=== PATIENT | female | born 1975 | race Caucasian/White ===

== ENCOUNTER → 2016-05-31 | Outpatient (CLI) | payer OTHER ==
--- NOTE | 2016-06-01 17:20 | XR ---
EXAMINATION TYPE: XR chest 2V DATE OF EXAM: 05/31/2016 3:31 PM COMPARISON: 01/08/2015 INDICATION: Short of breath cough wheeze TECHNIQUE: Frontal and lateral views of the chest are obtained. FINDINGS: The heart size is normal. The pulmonary vasculature is normal. The lungs are clear. IMPRESSION: 1. No acute pulmonary process.
== END | disposition home or self-care (01) ==
LOC: RADXRYALE 15:20
PROVIDERS: ATTEND Physician Assistant Medical
DX: R06.02 Shortness of breath (principal); R05 Cough; R06.2 Wheezing
CPT/HCPCS: 71020

== ENCOUNTER 2021-06-09 23:44 | Inpatient (IN) | payer OTHER ==
--- NOTE | 2021-06-10 00:59 | ED ---
Chest Pain HPI - General Chief Complaint: Chest Pain Stated Complaint: Chest Pain Time Seen by Provider: 06/10/21 00:05 Source: patient, RN notes reviewed, old records reviewed Mode of arrival: ambulatory Limitations: no limitations - History of Present Illness Initial Comments: This is a 46-year-old female DF for evaluation. Patient coming in for chest pain anterior chest pain she has recent diagnosis of coronavirus is concern for maybe chest pain related coronavirus also chest pain from prior history of prior history of myocardial infarction. Patient has prior stents. One STEMI 1 non- STEMI. Patient although sitting here in the ER has no chest pain. She is never to take nitro for chest pain relief at home first heart attack was 8 years MD Complaint: chest pain -: hour(s) Onset: during rest Pain Location: substernal, left chest Pain Radiation: LUE Severity: mild Severity scale (1-10): 4 Quality: tightness Consistency: constant Improves With: nothing Worsens With: nothing Context: recent illness Other Symptoms: cough Treatments Prior to Arrival: none - Related Data Home Medications Medication Instructions Recorded Confirmed Citalopram Hydrobromide [CeleXA] 20 mg PO HS 01/08/15 01/08/15 Omeprazole [PriLOSEC] 40 mg PO AC-BID 01/08/15 01/08/15 Previous Rx's Medication Instructions Recorded Aspirin 325 mg PO DAILY #30 tab 09/29/14 Atorvastatin [Lipitor] 80 mg PO HS #30 tab 09/29/14 Metoprolol Tartrate [Lopressor] 25 mg PO BID #60 tab 09/29/14 Nitroglycerin Sl Tabs [Nitrostat] 0.4 mg SUBLINGUAL Q5M PRN #25 tab 09/29/14 Prasugrel [Effient] 10 mg PO DAILY #30 tab 09/29/14 Allergies Allergy/AdvReac Type Severity Reaction Status Date / Time No Known Allergies Allergy Verified 06/09/21 23:52 Review of Systems ROS Statement: Those systems with pertinent positive or pertinent negative responses have been documented in the HPI. ROS Other: All systems not noted in ROS Statement are negative. EKG Findings - EKG Comments: EKG Findings:: EKG shows sinus rhythm 60 IN 148 QRS 82 QTC 418 Past Medical History Past Medical History: Asthma, Hyperlipidemia, Hypertension, Myocardial Infarction ([place]) Additional Past Medical History / Comment(s): ANXIETY/DEPRESSION, covid may 2021 Last Myocardial Infarction Date:: 09/26/14 History of Any Multi-Drug Resistant Organisms: None Reported Past Surgical History: Section, Heart Catheterization With Stent Additional Past Surgical History / Comment(s): cardiac stent 09/26/14 Past Anesthesia/Blood Transfusion Reactions: No Reported Reaction Date of Last Stent Placement:: 09/26/2014 Past Psychological History: Anxiety Past Alcohol Use History: None Reported Past Drug Use History: None Reported - Past Family History Mother Family Medical History: Diabetes Mellitus, Hyperlipidemia, Hypertension Father Family Medical History: Coronary Artery Disease (CAD) Additional Family Medical History / Comment(s): CABG Brother(s) Family Medical History: Coronary Artery Disease (CAD) Additional Family Medical History / Comment(s): [place] AT 33 Y/O General Exam Limitations: no limitations General appearance: alert, in no apparent distress Head exam: Present: atraumatic, normocephalic, normal inspection Eye exam: Present: normal appearance, PERRL, EOMI. Absent: scleral icterus, conjunctival injection, periorbital swelling ENT exam: Present: normal exam, mucous membranes moist Neck exam: Present: normal inspection. Absent: tenderness, meningismus, lymphadenopathy Respiratory exam: Present: normal lung sounds bilaterally. Absent: respiratory distress, wheezes, rales, rhonchi, stridor Cardiovascular Exam: Present: regular rate, normal rhythm, normal heart sounds. Absent: systolic murmur, diastolic murmur, rubs, gallop, clicks GI/Abdominal exam: Present: soft, normal bowel sounds. Absent: distended, tenderness, guarding, rebound, rigid Extremities exam: Present: normal inspection, full ROM, normal capillary refill. Absent: tenderness, pedal edema, joint swelling, calf tenderness Back exam: Present: normal inspection Neurological exam: Present: alert, oriented X3, CN II-XII intact Psychiatric exam: Present: normal affect, normal mood Skin exam: Present: warm, dry, intact, normal color. Absent: rash Course Vital Signs 06/09/21 06/10/21 06/10/21 23:45 01:00 02:33 Temperature 97.8 F Pulse Rate 63 59 L 62 Respiratory 18 18 18 Rate Blood Pressure 129/62 116/55 142/94 O2 Sat by Pulse 96 97 96 Oximetry - Reevaluation(s) Reevaluation #1: 06/10/21 02:14 Medical record is reviewed Reevaluation #2: 06/10/21 02:14 Patient remains without chest pain here in the ER Reevaluation #3: 06/10/21 02:42 She is informed of results and questions answered - Consultations Consultation #1: Spoke with the admitting physician who agrees to admission Chest Pain MDM - MDM 46 female Duane with chest pain recent diagnosis of coronavirus. Diagnosis was first noted to be 11 days ago. Patient's been feeling well without fever, patient had chest pain today she does have positive troponin here in the ER for positive non-ST elevated [place] patient will be admitted for further evaluation management Critical Care Time Critical Care Time: Yes Total Critical Care Time: 31 Disposition Clinical Impression: Chest pain, Acute non-ST elevation myocardial infarction (NSTEMI) Disposition: ADMITTED IP TO THIS HOSP Condition: Serious Is patient prescribed a controlled substance at d/c from ED?: No Referrals: Jerrell Brown DO [Primary Care Provider] - 1-2 days
[2021-06-10] MEDS ORDERED: KETOROLAC 15 MG/ML 1 ML VIAL IVP STA (01:00)
[2021-06-10] MEDS ORDERED: SODIUM CHLORIDE 0.9% 1,000 ML IV STA (01:00)
[2021-06-10] MEDS ORDERED: DEXAMETHASONE SOD PHOSPHATE 10 MG/ML 1 ML VIAL IVP STA (01:00)
--- NOTE | 2021-06-10 01:12 | XR ---
EXAMINATION TYPE: XR chest 2V DATE OF EXAM: 06/10/2021 COMPARISON: 05/31/2016 HISTORY: Chest pain TECHNIQUE: FINDINGS: Heart and mediastinum are normal. Lungs are clear. Diaphragm is normal. There are chest luz ds. Bony thorax is intact. IMPRESSION: Normal chest. No change.
[2021-06-10 01:43] LABS: Anisocytosis Slight; Basophils # (A) 0.1 k/uL (0-0.2); Basophils % (A) 1 %; Eosinophils # (A) 0.3 k/uL (0-0.7); Eosinophils % (A) 3 %; HCT 35.2 % (34.0-46.0); HGB 11.4 gm/dL (11.4-16.0); Hypochromasia Slight; Lymphocytes # (A) 2.6 k/uL (1.0-4.8); Lymphocytes % (A) 30 %; MCH 27.7 pg (25.0-35.0); MCHC 32.4 g/dL (31.0-37.0); MCV 85.4 fL (80.0-100.0); Mean Platelet Volume 8.9; Monocytes # (A) 0.4 k/uL (0-1.0); Monocytes % (A) 5 %; Neutrophils # (A) 5.1 k/uL (1.3-7.7); Neutrophils % (A) 60 %; Platelet Count 334 k/uL (150-450); Poikilocytosis Slight; RBC 4.12 m/uL (3.80-5.40); RDW 18.3 % (11.5-15.5); WBC 8.6 k/uL (3.8-10.6)
[2021-06-10 01:56] LABS: ALT 16 U/L (4-34); AST 21 U/L (14-36); African American GFR (CKD) >90 (>60 ml/min/1.73 sqM); Albumin 3.7 g/dL (3.5-5.0); Alkaline Phosphatase 95 U/L (38-126); Anion Gap 9 mmol/L; Blood Urea Nitrogen 15 mg/dL (7-17); C Reactive Protein 0.8 mg/dL (<1.0); Calcium 9.3 mg/dL (8.4-10.2); Carbon Dioxide 25 mmol/L (22-30); Chloride 103 mmol/L (98-107); Glucose 112 mg/dL (74-99); LDH 595 U/L (313-618); Lipase 86 U/L (23-300); Magnesium 2.1 mg/dL (1.6-2.3); Non-African American GFR(CKD) 81 (>60 ml/min/1.73 sqM); Potassium 4.6 mmol/L (3.5-5.1); Sodium 137 mmol/L (137-145); Total Bilirubin 0.4 mg/dL (0.2-1.3); Total Protein 6.9 g/dL (6.3-8.2)
[2021-06-10 02:15] LABS: INR 0.9 (<1.2); Prothrombin Time 10.1 sec (9.0-12.0)
[2021-06-10 02:16] LABS: Partial Thromboplastin Time 21.8 sec (22.0-30.0)
[2021-06-10] MEDS ORDERED: MORPHINE SULFATE 4 MG/ML SYRINGE IV PRN (02:40)
[2021-06-10] MEDS ORDERED: NITROGLYCERIN SL TABS 0.4 MG TAB SUBLINGUAL PRN (02:40)
[2021-06-10] MEDS ORDERED: HEPARIN SODIUM 1,000 UN/ML (10ML VL) IV ONE (02:40)
[2021-06-10] MEDS ORDERED: ASPIRIN 81 MG PO STA (02:40)
[2021-06-10] MEDS: SODIUM CHLORIDE 0.9% 1,000 ML IV SCH (03:17)
[2021-06-10] MEDS: HEPARIN SOD,PORK IN 0.45% NACL 25,000 UNIT in 0.45% NACL 1 250ML.BAG IV SCH (03:19)
[2021-06-10] MEDS: METOPROLOL TARTRATE 25 MG TAB PO SCH ×2 (08:49→19:51)
[2021-06-10] MEDS: ATORVASTATIN 80 MG TAB PO SCH (08:49)
--- NOTE | 2021-06-10 09:06 | P.CRDCN ---
History of Present Illness Consult date: 06/10/21 Consult reason: chest pain Chief complaint: Chest pain History of present illness: 46-year-old lady with history of inferior wall myocardial infarction status post angioplasty with stent placement of right coronary artery hypertension and dyslipidemia presents to Hospital complaining of chest discomfort. She suffered from a flulike illness about 10-12 days ago and tested positive for coronary bypass infection yesterday she developed episodes of chest discomfort she has also had cough with mild productive sputum she describes it as a precordial chest pressure without definite radiation to neck, back she is a smoker and is still smoking cigarettes in EKG does not reveal acute ischemic changes her troponins are mildly elevated patient has known CAD and had angioplasty with stent placement of distal right coronary artery that showed a 30% proximal LAD disease at that time she has seen Dr. Durán at that time but hasn't been seen in our office in about 6 years. She currently follows at [facility] It is unclear if the patient's chest discomfort in troponin elevation is related to "infection or represents a true myocardial infarction I advised the patient to undergo cardiac catheterization for further evaluation I will obtain a 2-D echo to assess her LV function Patient has been vaccinated but not boosted Review of Systems Constitutional: Denies chills. Denies fever. Eyes: Denies blurred vision. Denies pain. Ears, nose, mouth and throat: Denies headache. Denies sore throat. Cardiovascular: Significant for chest pain Denies shortness of breath. Respiratory: Denies cough. Gastrointestinal: Denies abdominal pain. Denies diarrhea. Denies nausea. Denies vomiting. Musculoskeletal: Denies myalgias. Integumentary: Denies pruritus. Denies rash. Neurological: Denies numbness. Denies weakness. Psychiatric: Denies anxiety. Denies depression. Endocrine: Denies fatigue. Denies weight change. Genitourinary: Denies burning, hematuria, frequency of urination. Hematological: No anemia or excess bleeding. Past Medical History Past Medical History: Asthma, Hyperlipidemia, Hypertension, Myocardial Infarction ([place]) Additional Past Medical History / Comment(s): ANXIETY/DEPRESSION, covid may 2021 Last Myocardial Infarction Date:: 09/26/14 History of Any Multi-Drug Resistant Organisms: None Reported Past Surgical History: Section, Heart Catheterization With Stent Additional Past Surgical History / Comment(s): cardiac stent 09/26/14 Past Anesthesia/Blood Transfusion Reactions: No Reported Reaction Date of Last Stent Placement:: 09/26/2014 Past Psychological History: Anxiety Past Alcohol Use History: None Reported Past Drug Use History: None Reported - Past Family History Mother Family Medical History: Diabetes Mellitus, Hyperlipidemia, Hypertension Father Family Medical History: Coronary Artery Disease (CAD) Additional Family Medical History / Comment(s): CABG Brother(s) Family Medical History: Coronary Artery Disease (CAD) Additional Family Medical History / Comment(s): FROM [place] AT 33 Y/O Medications and Allergies Home Medications Medication Instructions Recorded Confirmed Type Aspirin 325 mg PO DAILY #30 tab 09/29/14 06/10/21 Rx Metoprolol Tartrate [Lopressor] 25 mg PO BID #60 tab 09/29/14 06/10/21 Rx Nitroglycerin Sl Tabs [Nitrostat] 0.4 mg SUBLINGUAL Q5M PRN #25 tab 09/29/14 06/10/21 Rx Omeprazole [PriLOSEC] 40 mg PO BID 01/08/15 06/10/21 History Atorvastatin [Lipitor] 80 mg PO DAILY 06/10/21 06/10/21 History Citalopram Hydrobromide 40 mg PO DAILY 06/10/21 06/10/21 History Furosemide [Lasix] 20 mg PO HS 06/10/21 06/10/21 History Losartan Potassium [Cozaar] 25 mg PO HS 06/10/21 06/10/21 History Oxybutynin Chloride [Ditropan XL] 5 mg PO DAILY 06/10/21 06/10/21 History Potassium Chloride [Klor-Con 20] 20 meq PO HS 06/10/21 06/10/21 History Allergies Allergy/AdvReac Type Severity Reaction Status Date / Time No Known Allergies Allergy Verified 06/09/21 23:52 Physical Exam Vitals: Vital Signs Temp Pulse Resp BP Pulse Ox 06/10/21 08:52 75 18 139/83 96 06/10/21 07:22 55 L 18 121/67 94 L 06/10/21 04:47 74 18 151/84 96 06/10/21 03:24 56 L 18 136/69 97 06/10/21 02:33 62 18 142/94 96 06/10/21 01:00 59 L 18 116/55 97 06/09/21 23:45 97.8 F 63 18 129/62 96 Intake and Output 06/09/21 06/10/21 06/10/21 22:59 06:59 14:59 Other: Weight 90.718 kg General: The patient is awake and alert, in no distress, and does not appear acutely ill. Skin: Skin is warm and dry and no rashes or lesions are noted. Eye: Pupils are equal, round and reactive to light, extra-ocular movements are intact; there is normal conjunctiva bilaterally. Ears, nose, mouth and throat: There are moist mucous membranes and no oral lesions. Neck: The neck is supple, there is no tenderness or JVD. Cardiovascular: There is a regular rate and rhythm. No murmur, rub or gallop is appreciated. Respiratory: Lungs are clear to auscultation, respirations are non-labored, breath sounds are equal. Gastrointestinal: Soft, non-distended, non-tender abdomen without masses or organomegaly noted. There is no rebound or guarding present. Bowel sounds are unremarkable. Back: There is no tenderness to palpation in the midline. There is no obvious deformity. Musculoskeletal: Normal ROM, no tenderness, There is no pedal edema. There is no calf tenderness or swelling. Extremities: No edema. Vascular: Femoral pulse is normal. Posterior tibial pulses are normal .Dorsalis pedis is palpable. Neurological: CN II-XII intact. There are no obvious motor or sensory deficits. Speech is normal. Psychiatric: Cooperative, appropriate mood & affect, normal judgment. Results 06/10/21 01:00 06/10/21 01:00 Cardiac Enzymes 06/10/21 06/10/21 06/10/21 Range/Units 01:00 01:00 05:03 AST 21 (14-36) U/L Lactate Dehydrogenase 595 (313-618) U/L Troponin I 0.134 H* 0.280 H* (0.000-0.034) ng/mL Coagulation 06/10/21 06/10/21 Range/Units 01:00 07:55 PT 10.1 (9.0-12.0) sec APTT 21.8 L 49.6 H (22.0-30.0) sec CBC 06/10/21 Range/Units 01:00 WBC 8.6 (3.8-10.6) k/uL RBC 4.12 (3.80-5.40) m/uL Hgb 11.4 (11.4-16.0) gm/dL Hct 35.2 (34.0-46.0) % Plt Count 334 (150-450) k/uL Comprehensive Metabolic Panel 06/10/21 Range/Units 01:00 Sodium 137 (137-145) mmol/L Potassium 4.6 (3.5-5.1) mmol/L Chloride 103 (98-107) mmol/L Carbon Dioxide 25 (22-30) mmol/L BUN 15 (7-17) mg/dL Creatinine 0.86 (0.52-1.04) mg/dL Glucose 112 H (74-99) mg/dL Calcium 9.3 (8.4-10.2) mg/dL AST 21 (14-36) U/L ALT 16 (4-34) U/L Alkaline Phosphatase 95 (38-126) U/L Total Protein 6.9 (6.3-8.2) g/dL Albumin 3.7 (3.5-5.0) g/dL Current Medications Generic Name Dose Route Start Last Admin Trade Name Freq PRN Reason Stop Dose Admin Aspirin 325 mg 06/11/21 09:00 Aspirin 325 Mg Tab PO DAILY [facility] Atorvastatin Calcium 80 mg 06/10/21 09:00 06/10/21 08:49 Atorvastatin 80 Mg Tab PO 80 mg DAILY KIRILL Administration Sodium Chloride 1,000 mls @ 20 mls/hr 06/10/21 02:45 06/10/21 03:17 Saline 0.9% IV 20 mls/hr .Q24H KIRILL Administration Heparin Sodium/Sodium Chloride 250 mls @ 9.979 mls/hr 06/10/21 02:45 06/10/21 03:19 25,000 unit/ Sodium Chloride IV 11 units/kg/hr .Q24H KIRILL 9.979 mls/hr Administration Protocol 11 UNITS/KG/HR Losartan Potassium 25 mg 06/10/21 21:00 Losartan 25 Mg Tab PO HS KIRILL Metoprolol Tartrate 25 mg 06/10/21 09:00 06/10/21 08:49 Metoprolol Tartrate 25 Mg Tab PO 25 mg BID KIRILL Administration Morphine Sulfate 4 mg 06/10/21 02:40 Morphine Sulfate 4 Mg/Ml Syringe IV Q4HR PRN Chest Pain Nitroglycerin 0.4 mg 06/10/21 02:40 Nitroglycerin Sl Tabs 0.4 Mg Tab SUBLINGUAL Q5M PRN Chest Pain Intake and Output 06/09/21 06/10/21 06/10/21 22:59 06:59 14:59 Other: Weight 90.718 kg 06/10/21 01:00 06/10/21 01:00 EKG Interpretations (text) Normal sinus rhythm without ST-T wave changes Assessment and Plan Assessment: Acute coronary virus infection Acute non-ST segment elevation [place] Plan: Patient will undergo cardiac catheterization She is on brillinta since her initial angioplasty that she stopped in April
[2021-06-10] MEDS ORDERED: ALPRAZolam 0.5 MG TAB PO PRN (10:08)
[2021-06-10] MEDS ORDERED: ALPRAZolam 0.25 MG TAB PO PRN (10:08)
--- NOTE | 2021-06-10 10:43 | ECHOF ---
Referral Reason:elevated troponin, chest pain MEASUREMENTS -------- HEIGHT: 154.9 cm WEIGHT: 90.7 kg BP: IVSd: 1.2 cm (0.6 - 1.1) LVIDd: 3.4 cm (3.9 - 5.3) LVPWd: 1.6 cm (0.6 - 1.1) IVSs: 1.9 cm LVIDs: 1.9 cm LVPWs: 1.8 cm FINDINGS -------- Limited study due to covid 19 exposure. The left ventricular size is normal. There is moderate concentric left ventricular hypertrophy. O verall left ventricular systolic function is normal with, an EF between 55 - 60 %. There is no pericardial effusion. CONCLUSIONS -------- 1. Limited study due to covid 19 exposure. 2. The left ventricular size is normal. 3. There is moderate concentric left ventricular hypertrophy. 4. Overall left ventricular systolic function is normal with, an EF between 55 - 60 %. 5. There is no pericardial effusion. DISABILITY HEARING OFFICER: Hallie Almaraz [facility]
[2021-06-10] MEDS ORDERED: IV FLUID CONTINUATION 600 ML IV ONE (12:10)
[2021-06-10] MEDS ORDERED: MIDAZOLAM 2 MG/2 ML VIAL IV ONE (12:22)
[2021-06-10] MEDS ORDERED: fentaNYL (PF) 50 MCG/ML 2 ML AMP IV ONE (12:22)
[2021-06-10 12:40] LABS: African American GFR (CKD) >90 (>60 ml/min/1.73 sqM); Anion Gap 5 mmol/L; Blood Urea Nitrogen 14 mg/dL (7-17); Calcium 9.1 mg/dL (8.4-10.2); Carbon Dioxide 22 mmol/L (22-30); Chloride 107 mmol/L (98-107); Glucose 155 mg/dL (74-99); Non-African American GFR(CKD) >90 (>60 ml/min/1.73 sqM); Potassium 4.7 mmol/L (3.5-5.1); Sodium 134 mmol/L (137-145)
[2021-06-10] MEDS ORDERED: IOPAMIDOL-370 100ML BTL INJ ONE (12:48)
--- NOTE | 2021-06-10 13:11 | CC ---
CARDIAC CATHETERIZATION REPORT INDICATION: Acute int-AF-etmchox-elevation IL. PROCEDURE NOTE: After obtaining informed consent, left heart catheterization and coronary angiogram were performed via the right femoral artery using standard Bibi catheters. The patient tolerated the procedure well without any obvious immediate complications. Femoral angiogram was performed and Angio-Seal will be deployed for hemostasis. Patient received moderate conscious sedation. Total sedation time was 19 minutes. FINDINGS: HEMODYNAMICS: Left ventricular end-diastolic pressure is 12 mm. There is no significant gradient across the aortic valve. LEFT VENTRICULOGRAM: Left ventriculogram was not performed. ANGIOGRAPHIC DATA: Left main coronary artery. Left main coronary artery is a normal-sized vessel and is free of stenosis. It divides into left anterior descending coronary artery and circumflex coronary artery. LAD and its branches, circumflex coronary artery and its branches are free of significant stenosis. Right coronary artery was previously stented in the distal and mid right coronary artery. It is a large dominant vessel. The stents appear patent. There is mild diffuse disease involving the PLV and mild nonobstructive disease involving the PDA. CONCLUSIONS: Patent stents within the right coronary artery; mild nonobstructive disease distally. PLAN: I believe the patient's chest pain and the elevated troponins are related to the COVID infection. I will continue her with aggressive medical therapy. We should be able to discharge her home in the next 24 to 48 hours and outpatient followup with Cardiology. MMODL / IJN: [id number] /
--- NOTE | 2021-06-10 14:03 | P.HPIM ---
History of Present Illness 69-year-old the female with history of coronary artery disease and stents in the past came in with complaints of lower chest pain mostly burning sensation with some pleuritic competent. Patient had a flulike illness was diagnosed with COVID-19 about 4 days ago. Patient doesn't the have significant COVID-19 symptoms except for mild sore throat patient is not hypoxic. Patient did not have any significant EKG is but did have multiple mildly elevated troponins because of which patient underwent cardiac catheterization which did not show any significant dose coronary occlusive disease that will require stenting. REVIEW OF SYSTEMS: CONSTITUTIONAL: No fever, no malaise, no fatigue. HEENT: No recent visual problems or hearing problems. Denied any sore throat. CARDIOVASCULAR: No orthopnea, PND, no palpitations, no syncope. PULMONARY: No shortness of breath, no cough, no hemoptysis. GASTROINTESTINAL: No diarrhea, no nausea, no vomiting, no abdominal pain. NEUROLOGICAL: No headaches, no weakness, no numbness. HEMATOLOGICAL: Denies any bleeding or petechiae. GENITOURINARY: Denies any burning micturition, frequency, or urgency. MUSCULOSKELETAL/RHEUMATOLOGICAL: Denies any joint pain, swelling, or any muscle pain. ENDOCRINE: Denies any polyuria or polydipsia. The rest of the 14-point review of systems is negative. PHYSICAL EXAMINATION: GENERAL: The patient is alert and oriented x3, not in any acute distress. Well developed, well nourished. HEENT: Pupils are round and equally reacting to light. EOMI. No scleral icterus. No conjunctival pallor. Normocephalic, atraumatic. No pharyngeal erythema. No t hyromegaly. CARDIOVASCULAR: S1 and S2 present. No murmurs, rubs, or gallops. PULMONARY: Chest is clear to auscultation, no wheezing or crackles. ABDOMEN: Soft, nontender, nondistended, normoactive bowel sounds. No palpable organomegaly. MUSCULOSKELETAL: No joint swelling or deformity. EXTREMITIES: No cyanosis, clubbing, or pedal edema. NEUROLOGICAL: Gross neurological examination did not reveal any focal deficits. SKIN: No rashes. Assessment and plan -Chest pain is musculoskeletal pleuropericarditis from coronavirus infection. Patient the had elevated troponins probably secondary to the same. Patient had cardiac catheterization which did not show significant occlusive disease that will need stenting. -Type II non-ST elevation [place] patient is presently on IV heparin which will be co ntinued next -ruled out pulmonary embolism with a d-dimer. -Severe gastroesophageal reflux disease, Protonix twice a day along with Maalox -coronary artery disease with previous stents -Hyperlipidemia -Hypertension -Nicotine abuse: Counseling was provided DVT prophylaxis: On IV heparin Past Medical History Past Medical History: Asthma, Coronary Artery Disease (CAD), Heart Failure, GERD/Reflux, Hyperlipidemia, Hypertension, Myocardial Infarction ([place]), Pneumonia Additional Past Medical History / Comment(s): Pt has covid/+covid tests 05/31/21 and 06/05/21 with symptoms starting on 05/31/21, CHF once in 2019, chronic gerd, urinary leakage. Last Myocardial Infarction Date:: 05/20/18 History of Any Multi-Drug Resistant Organisms: None Reported Past Surgical History: Section, Heart Catheterization With Stent Additional Past Surgical History / Comment(s): PCI with stents to RCA 2014 and 2017, Past Anesthesia/Blood Transfusion Reactions: No Reported Reaction Date of Last Stent Placement:: 05/20/18 Smoking Status: Current every day smoker - Past Family History Mother Family Medical History: Diabetes Mellitus, Hyperlipidemia, Hypertension Father Family Medical History: Coronary Artery Disease (CAD) Additional Family Medical History / Comment(s): CABG Brother(s) Family Medical History: Coronary Artery Disease (CAD), Myocardial Infarction ([place]) Additional Family Medical History / Comment(s): FROM [place] AT 33 Y/O Medications and Allergies Home Medications Medication Instructions Recorded Confirmed Type Aspirin 325 mg PO DAILY #30 tab 09/29/14 06/10/21 Rx Metoprolol Tartrate [Lopressor] 25 mg PO BID #60 tab 09/29/14 06/10/21 Rx Nitroglycerin Sl Tabs [Nitrostat] 0.4 mg SUBLINGUAL Q5M PRN #25 tab 09/29/14 Rx Omeprazole [PriLOSEC] 40 mg PO BID 01/08/15 06/10/21 History Atorvastatin [Lipitor] 80 mg PO DAILY 06/10/21 06/10/21 History Citalopram Hydrobromide 40 mg PO DAILY 06/10/21 06/10/21 History Furosemide [Lasix] 20 mg PO HS 06/10/21 06/10/21 History Losartan Potassium [Cozaar] 25 mg PO HS 06/10/21 06/10/21 History Oxybutynin Chloride [Ditropan XL] 5 mg PO DAILY 06/10/21 06/10/21 History Potassium Chloride [Klor-Con 20] 20 meq PO HS 06/10/21 06/10/21 History Allergies Allergy/AdvReac Type Severity Reaction Status Date / Time No Known Allergies Allergy Verified 06/09/21 23:52 Physical Exam Vitals: Vital Signs Temp Pulse Resp BP Pulse Ox 06/10/21 10:19 68 18 127/74 96 06/10/21 08:52 75 18 139/83 96 06/10/21 07:22 55 L 18 121/67 94 L 06/10/21 04:47 74 18 151/84 96 06/10/21 03:24 56 L 18 136/69 97 06/10/21 02:33 62 18 142/94 96 06/10/21 01:00 59 L 18 116/55 97 06/09/21 23:45 97.8 F 63 18 129/62 96 Intake and Output 06/09/21 06/10/21 06/10/21 22:59 06:59 14:59 Intake Total 100 Balance 100 Intake: IV 100 Other: Weight 90.718 kg 90.718 kg Results CBC & Chem 7: 06/10/21 01:00 06/10/21 07:55 Labs: Abnormal Lab Results - Last 24 Hours (Table) 06/10/21 06/10/21 06/10/21 Range/Units 01:00 01:00 01:00 RDW 18.3 H (11.5-15.5) % APTT 21.8 L (22.0-30.0) sec Sodium (137-145) mmol/L Glucose 112 H (74-99) mg/dL Troponin I (0.000-0.034) ng/mL Coronavirus (PCR) (Not Detectd) 06/10/21 06/10/21 06/10/21 Range/Units 01:00 01:00 05:03 RDW (11.5-15.5) % APTT (22.0-30.0) sec Sodium (137-145) mmol/L Glucose (74-99) mg/dL Troponin I 0.134 H* 0.280 H* (0.000-0.034) ng/mL Coronavirus (PCR) Detected A (Not Detectd) 06/10/21 06/10/21 06/10/21 Range/Units 07:55 07:55 07:55 RDW (11.5-15.5) % APTT 49.6 H (22.0-30.0) sec Sodium 134 L (137-145) mmol/L Glucose 155 H (74-99) mg/dL Troponin I 0.331 H* (0.000-0.034) ng/mL Coronavirus (PCR) (Not Detectd) Thrombosis Risk Factor Assmnt - Choose All That Apply Any of the Below Risk Factors Present?: Yes Each Factor Represents 1 point: Acute [place], Age 41-60 years, Obesity (BMI >25) Other Risk Factors: No Other congenital or acquired thrombophilia - If yes, enter type in comment: No Thrombosis Risk Factor Assessment Total Risk Factor Score: 3 Thrombosis Risk Factor Assessment Level: Moderate Risk
[2021-06-10] MEDS: NITROGLYCERIN OINT 1 INCH/GM PACKET TOPICAL SCH ×3 (18:58→23:26)
[2021-06-10] MEDS: SODIUM CHLORIDE 0.9% 1,000 ML in EMPTY BAG 1 BAG IV SCH ×2 (18:58→21:40)
[2021-06-10] MEDS: MAG HYDROX/AL HYDROX/SIMETH 30 ML CUP PO SCH ×2 (18:59→19:51)
[2021-06-10] MEDS: PANTOPRAZOLE 40 MG/10 ML VIAL IVP SCH (19:51)
[2021-06-10 20:13] LABS: Glucose,Whole Blood 177 mg/dL (75-99)
[2021-06-10] MEDS ORDERED: LOSARTAN 25 MG TAB PO SCH (21:00)
[2021-06-11 06:11] LABS: Glucose,Whole Blood 127 mg/dL (75-99)
[2021-06-11] MEDS ORDERED: HEPARIN SODIUM,PORCINE 2,500 UNIT in SODIUM CHLORIDE 0.9% 250 ML IRRIGATION PRN (07:00)
[2021-06-11] MEDS ORDERED: HEPARIN SODIUM,PORCINE 10,000 UNIT in SODIUM CHLORIDE 0.9% 1,000 ML IRRIGATION PRN (07:00)
[2021-06-11 08:16] LABS: Anisocytosis Slight; Basophils % (A) 0 %; Eosinophils % (A) 0 %; HCT 32.9 % (34.0-46.0); HGB 10.4 gm/dL (11.4-16.0); Hypochromasia Moderate; Lymphocytes # (A) 2.1 k/uL (1.0-4.8); Lymphocytes % (A) 25 %; MCH 27.4 pg (25.0-35.0); MCHC 31.5 g/dL (31.0-37.0); Mean Platelet Volume 8.7; Monocytes # (A) 0.4 k/uL (0-1.0); Monocytes % (A) 5 %; Neutrophils # (A) 5.7 k/uL (1.3-7.7); Neutrophils % (A) 68 %; Platelet Count 331 k/uL (150-450); Poikilocytosis Slight; RBC 3.79 m/uL (3.80-5.40); RDW 18.6 % (11.5-15.5); WBC 8.4 k/uL (3.8-10.6)
[2021-06-11] MEDS: SODIUM CHLORIDE 0.9% 1,000 ML IV SCH (08:26)
[2021-06-11] MEDS: HEPARIN SOD,PORK IN 0.45% NACL 25,000 UNIT in 0.45% NACL 1 250ML.BAG IV SCH (08:26)
[2021-06-11] MEDS: NITROGLYCERIN OINT 1 INCH/GM PACKET TOPICAL SCH (08:27)
[2021-06-11] MEDS: SODIUM CHLORIDE 0.9% 1,000 ML in EMPTY BAG 1 BAG IV SCH (08:27)
[2021-06-11] MEDS ORDERED: ASPIRIN 325 MG TAB PO SCH (09:00)
[2021-06-11] MEDS: MAG HYDROX/AL HYDROX/SIMETH 30 ML CUP PO SCH ×2 (09:18→13:57)
[2021-06-11] MEDS: ATORVASTATIN 80 MG TAB PO SCH (09:18)
[2021-06-11] MEDS: METOPROLOL TARTRATE 25 MG TAB PO SCH (09:18)
[2021-06-11] MEDS: PANTOPRAZOLE 40 MG/10 ML VIAL IVP SCH (09:18)
[2021-06-11 09:25] LABS: African American GFR (CKD) >90 (>60 ml/min/1.73 sqM); Anion Gap 5 mmol/L; Blood Urea Nitrogen 12 mg/dL (7-17); Calcium 8.7 mg/dL (8.4-10.2); Carbon Dioxide 25 mmol/L (22-30); Chloride 107 mmol/L (98-107); Glucose 120 mg/dL (74-99); Non-African American GFR(CKD) >90 (>60 ml/min/1.73 sqM); Potassium 4.4 mmol/L (3.5-5.1); Sodium 137 mmol/L (137-145)
[2021-06-11 11:15] LABS: Chol/HDL Ratio 5.26 Ratio; LDL Cholesterol,Calculated 106.9 mg/dL (0.0-131.0)
[2021-06-11 11:47] LABS: Glucose,Whole Blood 116 mg/dL (75-99)
--- NOTE | 2021-06-11 11:52 | P.PN ---
Subjective Progress Note Date: 06/11/21 Patient is 46-year-old lady with history of inferior wall myocardial infarction status post angioplasty with stent placement of right coronary artery hypertension and dyslipidemia presents to Hospital complaining of chest discomfort. Patient began developing chest pain and was brought into the ER. She was found to have troponins positive 2. Patient was taken for a heart catheterization yesterday. No significant blockages were found during heart catheterization the distal and mid RCA stents are patent, and she was noted to have mild nonobstructive disease of the distal RCA. Patient will be medically managed. Elevated troponins are believed to be related to Covid infection. Patient was examined and resting in bed comfortably today. She denies chest pain, palpitations, dyspnea, dizziness, syncope, or edema. She states she is doing much better today and is ready to go. Patient underwent an echocardiogram which showed a normal LV function with an ejection fraction 55-60%. Patient is doing well today and from a cardiac standpoint can be discharged home continue with all current cardiac medications. Objective - Vital Signs Vital signs: Vital Signs Temp 98.3 F 06/11/21 03:53 Pulse 57 L 06/11/21 03:53 Resp 17 06/11/21 03:53 BP 105/58 06/11/21 03:53 Pulse Ox 96 06/11/21 03:53 Intake & Output 06/10/21 06/11/21 06/11/21 18:59 06:59 18:59 Intake Total 460 0 Balance 460 0 Weight 90.718 kg 91.9 kg Intake: IV 100 Oral 360 0 Other: # Voids 2 1 - Exam PHYSICAL EXAM: VITAL SIGNS: Reviewed. GENERAL: Well-developed in no acute distress. HEENT: Head is normocephalic. Pupils are equal, round. Sclerae anicteric. Mucous membranes of the mouth are moist. NECK: Supple. No JVD or thyromegaly RESPIRATORY: Respirations even and unlabored. Lungs diminished to auscultation bilaterally. CARDIO: Regular rate and rhythm. S1 and S2 heard. No murmur or gallops. EXTREMITIES: Normal range of motion. No clubbing or cyanosis. Peripheral pulses intact. Negative for bilateral lower extremity edema. Right groin is soft, no hematoma, small dime size bruise noted. NEURO: Orientated to person, time, mood is appropriate - Labs CBC & Chem 7: 06/11/21 07:31 06/11/21 07:31 Labs: Abnormal Lab Results - Last 24 Hours (Table) 06/10/21 06/10/21 06/11/21 Range/Units 07:55 20:12 06:10 RBC (3.80-5.40) m/uL Hgb (11.4-16.0) gm/dL Hct (34.0-46.0) % RDW (11.5-15.5) % Sodium 134 L (137-145) mmol/L Glucose 155 H (74-99) mg/dL POC Glucose (mg/dL) 177 H 127 H (75-99) mg/dL Triglycerides (0.00-149.00) mg/dL HDL Cholesterol (40.00-60.00) mg/dL 06/11/21 06/11/21 06/11/21 Range/Units 07:31 07:31 07:31 RBC 3.79 L (3.80-5.40) m/uL Hgb 10.4 L (11.4-16.0) gm/dL Hct 32.9 L (34.0-46.0) % RDW 18.6 H (11.5-15.5) % Sodium (137-145) mmol/L Glucose 120 H (74-99) mg/dL POC Glucose (mg/dL) (75-99) mg/dL Triglycerides 174.00 H (0.00-149.00) mg/dL HDL Cholesterol 33.30 L (40.00-60.00) mg/dL Assessment and Plan Assessment: Acute coronary virus infection Acute non-ST segment elevation [place] Plan: Continue with all current cardiac medications Continue with telemetry monitoring Patient is clear for discharge from a cardiac standpoint The above impression and plan of care have been discussed and directed by the signing physician. Roseanne Webster, nurse practitioner, acting as scribe for signing physician.
[2021-06-11 12:32] VITALS: BP 117/68; TEMP 98
--- NOTE | 2021-06-11 13:09 | P.DS ---
Providers Date of admission: 06/10/21 02:40 Attending physician: Brooke Booth Consults: 06/10/21 02:40 Consult Physician Urgent Consulting Provider: Carla Kelly Consult Reason/Comments: nstemi Do you want consulting provider notified?: Yes Primary care physician: Jerrell Brown Hospital Course: Final Diagnosis -Chest pain, most likely musculoskeletal pleuropericarditis from coronavirus infection. -Type II non-ST elevation CO with elevated troponins secondary to infection -ruled out pulmonary embolism with a d-dimer. 0.31. -Severe gastroesophageal reflux disease, Protonix twice a day along with Maalox -coronary artery disease with previous stents, cardiac cath this admission shows patent stents -Hyponatremia; resolved -Hyperlipidemia -Hypertension -Nicotine abuse: Counseling was provided Discharge Disposition Patient is stable for discharge from medical and cardiology standpoint. Patient underwent cardiac catheterization through right groin this admission which revealed patent stents. Patient advised to follow-up with her media manager before after discharge. Recent coronavirus infection patient has already been cleared to return to work. Hospital course This is a pleasant 46, female who presents the [facility] with complaints of left chest pain that is radiating into the left arm and left jaw. She was recently diagnosed with coronavirus infection and had concern for Chest pain related to coronavirus infection but also has previous history of CO with stenting. Patient had one STEMI and 1 non-STEMI. In the EC patient had no chest pain. EKG reviewed shows normal sinus rhythm with a sinus arrhythmia, there are no ST or T-wave changes. Limited echo shows an ejection fraction of 55-60% with no pericardial effusion. Patient underwent cardiac catheterization through the rig ht groin which revealed patent stenting of the mid and distal right coronary artery. There was mild diffuse disease involving the PLV and mild nonobstructive disease involving the PDA. Patient was cleared for discharge on all cardiac medications. Sodium on admission 134, improved to 137, glucose in the 120s, troponins were elevated at 0.134, 0.280 and 0.331. Culture panel reveals triglyceride level 174.00, total cholesterol 175, LDL 106.9 and HDL 33.30. Patient has remained afebrile, heart rate 57-64 sinus bradycardia to sinus rhythm, blood pressure 117/68 and she is 97% on room air. 06/11/2021 Patient cleared for discharge medically. She denies any chest pain, cough or shortness of breath. She denies nausea vomiting diarrhea. There is no dizziness or lightheadedness. She will follow-up with her PCP and media manager. Lungs are clear to auscultation, S1-S2 present, abdomen soft nontender, focal neurological exam is negative. Vital signs stable. Groin site intact. Please see medication reconciliation for list of current medications. Thank you for allowing us to participate in the care of this patient. Patient Condition at Discharge: Stable Plan - Discharge Summary Discharge Rx Participant: No New Discharge Prescriptions: New Aspirin 81 mg PO DAILY #30 tab Continue Metoprolol Tartrate [Lopressor] 25 mg PO BID #60 tab Nitroglycerin Sl Tabs [Nitrostat] 0.4 mg SUBLINGUAL Q5M PRN #25 tab PRN Reason: Chest Pain Omeprazole [PriLOSEC] 40 mg PO BID Furosemide [Lasix] 20 mg PO HS Losartan Potassium [Cozaar] 25 mg PO HS Citalopram Hydrobromide 40 mg PO DAILY Atorvastatin [Lipitor] 80 mg PO DAILY Potassium Chloride [Klor-Con 20] 20 meq PO HS Oxybutynin Chloride [Ditropan XL] 5 mg PO DAILY Discontinued Aspirin 325 mg PO DAILY #30 tab Discharge Medication List Metoprolol Tartrate [Lopressor] 25 mg PO BID #60 tab 09/29/14 [Rx] Nitroglycerin Sl Tabs [Nitrostat] 0.4 mg SUBLINGUAL Q5M PRN #25 tab 09/29/14 [Rx] Omeprazole [PriLOSEC] 40 mg PO BID 01/08/15 [History] Atorvastatin [Lipitor] 80 mg PO DAILY 06/10/21 [History] Citalopram Hydrobromide 40 mg PO DAILY 06/10/21 [History] Furosemide [Lasix] 20 mg PO HS 06/10/21 [History] Losartan Potassium [Cozaar] 25 mg PO HS 06/10/21 [History] Oxybutynin Chloride [Ditropan XL] 5 mg PO DAILY 06/10/21 [History] Potassium Chloride [Klor-Con 20] 20 meq PO HS 06/10/21 [History] Aspirin 81 mg PO DAILY #30 tab 06/11/21 [Rx] Follow up Appointment(s)/Referral(s): McPhilimy,Jerrell, DO [Primary Care Provider] - 1-2 days Ambulatory/Diagnostic Orders: Basic Metabolic Panel [LAB.AMB] Time Frame: 2 Days, Location: None Selected Patient Instructions/Handouts: Left Heart Catheterization (DC) Activity/Diet/Wound Care/Special Instructions: Follow up with media manager at [facility] Activity restricted until follow up Heart healthy diet Discharge Disposition: HOME SELF-CARE
[2021-06-11 16:31] VITALS: PULSE 68; RESP 14
[2021-06-11] MEDS ORDERED: PANTOPRAZOLE 40 MG TABLET PO SCH (17:30)
[2021-06-12] MEDS ORDERED: ASPIRIN 81 MG PO SCH (09:00)
== END 2021-06-11 15:37 | disposition home or self-care (01) | DRG 177 ==
LOC: EC 23:44 → 3SCARD 06-10 02:40
PROVIDERS: ADMIT Hospitalist; ATTEND Hospitalist
PROC: B2111ZZ Fluoroscopy of Multiple Coronary Arteries using Low Osmolar Contrast (ICD-10-PCS; 2021-06-10)
PROC: 3E0333Z Introduction of Anti-inflammatory into Peripheral Vein, Percutaneous Approach (ICD-10-PCS; 2021-06-10)
PROC: 4A023N7 Measurement of Cardiac Sampling and Pressure, Left Heart, Percutaneous Approach (ICD-10-PCS; principal; 2021-06-10 16:20)
DX: U07.1 COVID-19 (principal); I21.A1 Myocardial infarction type 2; E87.1 Hypo-osmolality and hyponatremia; I31.9 Disease of pericardium, unspecified; E78.5 Hyperlipidemia, unspecified; F17.200 Nicotine dependence, unspecified, uncomplicated; I25.10 Atherosclerotic heart disease of native coronary artery without angina pectoris; I25.2 Old myocardial infarction; I50.9 Heart failure, unspecified; I11.0 Hypertensive heart disease with heart failure; J45.909 Unspecified asthma, uncomplicated; K21.9 Gastro-esophageal reflux disease without esophagitis; Z79.02 Long term (current) use of antithrombotics/antiplatelets; Z79.82 Long term (current) use of aspirin; Z79.899 Other long term (current) drug therapy; Z82.49 Family history of ischemic heart disease and other diseases of the circulatory system; Z83.3 Family history of diabetes mellitus; Z95.5 Presence of coronary angioplasty implant and graft
CPT/HCPCS: 36415; 71046; 80048; 80053; 80061; 83615; 83690; 83735; 83880; 84484; 85025; 85379; 85610; 85730; 86140; 87635; 93005; 93308; 93458; 96374; 96375; 99291

== ENCOUNTER 2022-09-25 08:11 | Inpatient (IN) | payer OTHER ==
[2022-09-25] MEDS ORDERED: SODIUM CHLORIDE 0.9% 500 ML 500 ML IV STA (08:43)
--- NOTE | 2022-09-25 08:50 | ED ---
General Adult HPI - General Chief complaint: Neuro Symptoms/Deficit Stated complaint: TIA? Time Seen by Provider: 09/25/22 08:25 Source: patient, RN notes reviewed, old records reviewed Mode of arrival: ambulatory Limitations: no limitations - History of Present Illness Initial comments: This is a 47-year-old female with past medical history significant for coronary artery disease and stent placement. Patient comes in today because she had symptoms of slurred speech and left-sided arm and leg weakness. Patient states this lasted about half an hour this morning. Patient states all symptoms resolve. Patient denies headache patient denies any current numbness or weakness. Patient states all symptoms while in the left side earlier today. Patient denies any chest pain difficulty breathing shortness of breath. Patient denies any recent fever chills or cough. Patient denies any abdominal pain patient denies nausea vomiting diarrhea. Patient is able to coordinate movement with her arm which she was not able to earlier. Patient is in any currently at - Related Data Home Medications Medication Instructions Recorded Confirmed Omeprazole [PriLOSEC] 40 mg PO BID 01/08/15 06/10/21 Atorvastatin [Lipitor] 80 mg PO DAILY 06/10/21 06/10/21 Citalopram Hydrobromide 40 mg PO DAILY 06/10/21 06/10/21 [Citalopram HBr] Furosemide [Lasix] 20 mg PO HS 06/10/21 06/10/21 Losartan Potassium [Cozaar] 25 mg PO HS 06/10/21 06/10/21 Oxybutynin Chloride [Ditropan XL] 5 mg PO DAILY 06/10/21 06/10/21 Potassium Chloride [Klor-Con 20] 20 meq PO HS 06/10/21 06/10/21 Previous Rx's Medication Instructions Recorded Metoprolol Tartrate [Lopressor] 25 mg PO BID #60 tab 09/29/14 Nitroglycerin Sl Tabs [Nitrostat] 0.4 mg SUBLINGUAL Q5M PRN #25 tab 09/29/14 Aspirin 81 mg PO DAILY #30 tab 06/11/21 Mag Hydrox/Al Hydrox/Simeth 30 ml PO QID ml 06/11/21 [Maalox] Allergies Allergy/AdvReac Type Severity Reaction Status Date / Time No Known Allergies Allergy Verified 09/25/22 08:21 Review of Systems ROS Statement: Those systems with pertinent positive or pertinent negative responses have been documented in the HPI. ROS Other: All systems not noted in ROS Statement are negative. Past Medical History Past Medical History: Asthma, Coronary Artery Disease (CAD), Heart Failure, GERD/Reflux, Hyperlipidemia, Hypertension, Myocardial Infarction (OR), Pneumonia Additional Past Medical History / Comment(s): Pt has covid/+covid tests 05/31/21 and 06/05/21 with symptoms starting on 05/31/21, CHF once in 2019, chronic gerd, urinary leakage. Last Myocardial Infarction Date:: 05/20/18 History of Any Multi-Drug Resistant Organisms: None Reported Past Surgical History: Section, Heart Catheterization With Stent Additional Past Surgical History / Comment(s): PCI with stents to RCA 2014 and 2017, Past Anesthesia/Blood Transfusion Reactions: No Reported Reaction Date of Last Stent Placement:: 05/20/18 Past Psychological History: Anxiety, Depression Smoking Status: Current every day smoker - Past Family History Mother Family Medical History: Diabetes Mellitus, Hyperlipidemia, Hypertension Father Family Medical History: Coronary Artery Disease (CAD) Additional Family Medical History / Comment(s): CABG Brother(s) Family Medical History: Coronary Artery Disease (CAD), Myocardial Infarction (OR) Additional Family Medical History / Comment(s): FROM [place] AT 33 Y/O General Exam - General Exam Comments Initial Comments: GENERAL: Patient is well-developed and well-nourished. Patient is nontoxic and well- hydrated and is in no acute distress. ENT: Neck is soft and supple. No significant lymphadenopathy is noted. Oropharynx is clear. Moist mucous membranes. Neck has full range of motion without eliciting any pain. EYES: The sclera were anicteric and conjunctiva were pink and moist. Extraocular movements were intact and pupils were equal round and reactive to light. Eyelids were unremarkable. PULMONARY: Unlabored respirations. Good breath sounds bilaterally. No audible rales rhonchi or wheezing was noted. CARDIOVASCULAR: There is a regular rate and rhythm without any murmurs gallops or rubs. ABDOMEN: Soft and nontender with normal bowel sounds. SKIN: Skin is clear with no lesions or rashes and otherwise unremarkable. NEUROLOGIC: Patient is alert and oriented x3. Cranial nerves II through XII are grossly intact. Motor and sensory are also intact. Normal speech, volume and content. Symmetrical smile. NIH is 0 MUSCULOSKELETAL: Normal extremities with adequate strength and full range of motion. No lower e xtremity swelling or edema. No calf tenderness. LYMPHATICS: No significant lymphadenopathy is noted PSYCHIATRIC: Normal psychiatric evaluation. Limitations: no limitations Course Vital Signs 09/25/22 09/25/22 08:17 10:00 Temperature 98.7 F Pulse Rate 68 58 L Respiratory 18 18 Rate Blood Pressure 132/62 114/64 O2 Sat by Pulse 98 97 Oximetry Medical Decision Making - Medical Decision Making EKG is interpreted by myself shows sinus bradycardia 52 bpm OH interval 241. 102 QT interval 09/08/1989 QTC is 410. Patient's EKG shows no ST segment vijaya vation or depression. Was pt. sent in by a medical professional or institution (, PA, LINOTYPE WORKER, urgent care, hospital, or [facility]...) When possible be specific @ -No Did you speak to anyone other than the patient for history (EMS, parent, family, police, friend...)? What history was obtained from this source @ -No Did you review nursing and triage notes (agree or disagree)? Why? @ -I reviewed and agree with nursing and triage notes Were old charts reviewed (outside hosp., previous admission, EMS record, old EKG, old radiological studies, urgent care reports/EKG's, [facility] records)? Report findings @ -I reviewed prior labs in prior charts on this patient Differential Diagnosis (chest pain, altered mental status, abdominal pain women, abdominal pain men, vaginal bleeding, weakness, fever, dyspnea, syncope, he adache, dizziness, GI bleed, back pain, seizure, CVA, palpatations, mental health, musculoskeletal)? @ -Differential CVA Ischemic stroke, hemorrhagic stroke, brain tumor, atypical migraine, Wernicke's encephalopathy, seizure, multiple sclerosis, meningitis, encephalitis, hypogly cemia, Guillain-Sharma, electrolytes disturbance, myasthenia gravis.... This is not meant to be an all-inclusive list EKG interpreted by me (3pts min.). @ -As above X-rays interpreted by me (1pt min.). @ -Chest x-ray was interpreted by myself as no acute abnormalities CT interpreted by me (1pt min.). @ -. CT of the brain was interpreted by myself is in no acute abnormality CT angiogram of the head and neck was interpreted by radiology and no abnormalities were noted U/S interpreted by me (1pt. min.). @ -None done What testing was considered but not performed or refused? (CT, X-rays, U/S, labs)? Why? @ -None What meds were considered but not given or refused? Why? @ -None Did you discuss the management of the patient with other professionals (p rofessionals i.e. , PA, LINOTYPE WORKER, lab, RT, psych nurse, clinical social work aide, custodial foreman, teacher, loan servicing officer, ed case manager)? Give summary @ -I spoke with sounds physicians and they agreed to admit the patient admitted the patient wrote admitting orders Was smoking cessation discussed for >3mins.? @ -No Was critical care preformed (if so, how long)? @ -No Were there social determinants of health that impacted care today? How? (Homelessness, low income, unemployed, alcoholism, drug addiction, transportation, low edu. Level, literacy, decrease access to med. care, half-way, rehab)? @ -No Was there de-escalation of care discussed even if they declined (Discuss DNR or withdrawal of care, Hospice)? DNR status @ -No What co-morbidities impacted this encounter? (DM, HTN, Smoking, COPD, CAD, Cancer, CVA, ARF, Chemo, Hep., AIDS, mental health diagnosis, sleep apnea, morbid obesity)? @ -None Was patient admitted / discharged? Hospital course, mention meds given and route, prescriptions, significant lab abnormalities, going to [place] and other pertinent info. @ -Patient had no symptoms while in the emergency department a CT and CTA were done and no acute abnormality was noted Undiagnosed new problem with uncertain prognosis? @ -No Drug Therapy requiring intensive monitoring for toxicity (Heparin, Nitro, Insulin, Cardizem)? @ -No Were any procedures done? @ -No Diagnosis/symptom? @ -TIA Acute, or Chronic, or Acute on Chronic? @ -Acute Uncomplicated (without systemic symptoms) or Complicated (systemic symptoms)? @ -Complicated Side effects of treatment? @ -No Exacerbation, Progression, or Severe Exacerbation? @ -No Poses a threat to life or bodily function? How? (Chest pain, USA, [place], pneumonia, PE, COPD, DKA, ARF, appy, cholecystitis, CVA, Diverticulitis, Homicidal, Suicidal, threat to staff... and all critical care pts) @ -Yes this could lead to significant morbidity and mortality - Lab Data Result diagrams: 09/25/22 08:47 09/25/22 08:47 Lab Results 09/25/22 09/25/22 09/25/22 Range/Units 08:47 08:47 08:47 WBC 7.5 (3.8-10.6) k/uL RBC 4.40 (3.80-5.40) m/uL Hgb 11.4 (11.4-16.0) gm/dL Hct 36.5 (34.0-46.0) % MCV 83.0 (80.0-100.0) fL MCH 25.8 (25.0-35.0) pg MCHC 31.1 (31.0-37.0) g/dL RDW 18.2 H (11.5-15.5) % Plt Count 286 (150-450) k/uL MPV 9.0 Neutrophils % 65 % Lymphocytes % 23 % Monocytes % 5 % Eosinophils % 4 % Basophils % 1 % Neutrophils # 4.9 (1.3-7.7) k/uL Lymphocytes # 1.7 (1.0-4.8) k/uL Monocytes # 0.4 (0-1.0) k/uL Eosinophils # 0.3 (0-0.7) k/uL Basophils # 0.0 (0-0.2) k/uL Hypochromasia Moderate Poikilocytosis Slight Anisocytosis Slight Microcytosis Slight PT 9.5 (9.0-12.0) sec INR 0.9 (<1.2) APTT 20.5 L (22.0-30.0) sec Sodium 140 (137-145) mmol/L Potassium 4.4 (3.5-5.1) mmol/L Chloride 106 (98-107) mmol/L Carbon Dioxide 25 (22-30) mmol/L Anion Gap 9 mmol/L BUN 9 (7-17) mg/dL Creatinine 0.50 L (0.52-1.04) mg/dL Est GFR (CKD-EPI)AfAm >90 (>60 ml/min/1.73 sqM) Est GFR (CKD-EPI)NonAf >90 (>60 ml/min/1.73 sqM) Glucose 114 H (74-99) mg/dL Calcium 8.6 (8.4-10.2) mg/dL Total Bilirubin 0.2 (0.2-1.3) mg/dL AST 26 (14-36) U/L ALT 24 (4-34) U/L Alkaline Phosphatase 80 (38-126) U/L Creatine Kinase 55 (30-135) U/L Troponin I (0.000-0.034) ng/mL Total Protein 6.6 (6.3-8.2) g/dL Albumin 3.8 (3.5-5.0) g/dL 09/25/22 Range/Units 08:47 WBC (3.8-10.6) k/uL RBC (3.80-5.40) m/uL Hgb (11.4-16.0) gm/dL Hct (34.0-46.0) % MCV (80.0-100.0) fL MCH (25.0-35.0) pg MCHC (31.0-37.0) g/dL RDW (11.5-15.5) % Plt Count (150-450) k/uL MPV Neutrophils % % Lymphocytes % % Monocytes % % Eosinophils % % Basophils % % Neutrophils # (1.3-7.7) k/uL Lymphocytes # (1.0-4.8) k/uL Monocytes # (0-1.0) k/uL Eosinophils # (0-0.7) k/uL Basophils # (0-0.2) k/uL Hypochromasia Poikilocytosis Anisocytosis Microcytosis PT (9.0-12.0) sec INR (<1.2) APTT (22.0-30.0) sec Sodium (137-145) mmol/L Potassium (3.5-5.1) mmol/L Chloride (98-107) mmol/L Carbon Dioxide (22-30) mmol/L Anion Gap mmol/L BUN (7-17) mg/dL Creatinine (0.52-1.04) mg/dL Est GFR (CKD-EPI)AfAm (>60 ml/min/1.73 sqM) Est GFR (CKD-EPI)NonAf (>60 ml/min/1.73 sqM) Glucose (74-99) mg/dL Calcium (8.4-10.2) mg/dL Total Bilirubin (0.2-1.3) mg/dL AST (14-36) U/L ALT (4-34) U/L Alkaline Phosphatase (38-126) U/L Creatine Kinase (30-135) U/L Troponin I <0.012 (0.000-0.034) ng/mL Total Protein (6.3-8.2) g/dL Albumin (3.5-5.0) g/dL Disposition Clinical Impression: Transient cerebral ischemia Disposition: ADMITTED IP TO THIS HOSP Referrals: Jerrell Brown DO [Primary Care Provider] - 1-2 days Time of Disposition: 10:16
[2022-09-25 08:53] LABS: Anisocytosis Slight; Basophils % (A) 1 %; Eosinophils # (A) 0.3 k/uL (0-0.7); Eosinophils % (A) 4 %; HCT 36.5 % (34.0-46.0); HGB 11.4 gm/dL (11.4-16.0); Hypochromasia Moderate; Lymphocytes # (A) 1.7 k/uL (1.0-4.8); Lymphocytes % (A) 23 %; MCH 25.8 pg (25.0-35.0); MCHC 31.1 g/dL (31.0-37.0); Microcytosis Slight; Monocytes # (A) 0.4 k/uL (0-1.0); Monocytes % (A) 5 %; Neutrophils # (A) 4.9 k/uL (1.3-7.7); Neutrophils % (A) 65 %; Platelet Count 286 k/uL (150-450); Poikilocytosis Slight; RDW 18.2 % (11.5-15.5); WBC 7.5 k/uL (3.8-10.6)
[2022-09-25 09:07] LABS: INR 0.9 (<1.2); Prothrombin Time 9.5 sec (9.0-12.0)
[2022-09-25 09:13] LABS: Partial Thromboplastin Time 20.5 sec (22.0-30.0)
[2022-09-25 09:14] LABS: ALT 24 U/L (4-34); AST 26 U/L (14-36); African American GFR (CKD) >90 (>60 ml/min/1.73 sqM); Albumin 3.8 g/dL (3.5-5.0); Alkaline Phosphatase 80 U/L (38-126); Anion Gap 9 mmol/L; Blood Urea Nitrogen 9 mg/dL (7-17); Calcium 8.6 mg/dL (8.4-10.2); Carbon Dioxide 25 mmol/L (22-30); Chloride 106 mmol/L (98-107); Creatine Kinase 55 U/L (30-135); Glucose 114 mg/dL (74-99); Non-African American GFR(CKD) >90 (>60 ml/min/1.73 sqM); Potassium 4.4 mmol/L (3.5-5.1); Sodium 140 mmol/L (137-145); Total Bilirubin 0.2 mg/dL (0.2-1.3); Total Protein 6.6 g/dL (6.3-8.2)
--- NOTE | 2022-09-25 09:46 | CT ---
EXAMINATION TYPE: CT brain wo con CT DLP: 1102.3 mGycm, Automated exposure control for dose reduction was used. DATE OF EXAM: 09/25/2022 9:09 AM COMPARISON: 01/08/2015. CLINICAL INDICATION:Female, 47 years old with history of Neuro deficit, acute, stroke suspected, Neur o symptoms-left side weakness TECHNIQUE: Brain: Axial CT images of the brain were obtained with coronal and sagittal reformats created and rev iewed. Contrast used: None. Oral contrast used: None. FINDINGS: Brain: Extra-axial spaces: No abnormal extra-axial fluid collections. Ventricular system: Within normal limits Cerebral parenchyma: Stable left frontal lobe hypodense region. No acute intraparenchymal hemorrhage or mass effect. The mello-white junction is well differentiated. Cerebellum: Unremarkable. Mass effect: No evidence of midline shift. Intracranial vasculature: unremarkable Soft tissues: Normal. Calvarium/osseous structures: No depressed skull fracture. Paranasal sinuses and mastoid air cells: Mild scattered paranasal sinus disease. Visualized orbits: Orbital contents are intact. IMPRESSION: 1. No acute intracranial process. 2. Stable left frontal lobe injury. Consider MRI for complete evaluation the brain.
--- NOTE | 2022-09-25 09:48 | XR ---
EXAMINATION TYPE: XR chest 2V DATE OF EXAM: 09/25/2022 9:09 AM COMPARISON: Chest radiographs from 06/10/2021 TECHNIQUE: XR chest 2V Frontal and lateral views of the chest. CLINICAL INDICATION:Female, 47 years old with history of altered mental status; FINDINGS: Lungs/Pleura: There is no evidence of pleural effusion, focal consolidation, or pneumothorax. Pulmonary vascularity: Unremarkable. Heart/mediastinum: Cardiomediastinal silhouette is enlarged and stable. Musculoskeletal: No acute osseous pathology. IMPRESSION: No acute cardiopulmonary disease/process.
--- NOTE | 2022-09-25 10:16 | CT ---
EXAMINATION TYPE: CT angio head neck CT DLP: 934.9 mGycm, Automated exposure control for dose reduction was used. DATE OF EXAM: 09/25/2022 9:23 AM COMPARISON: None. CLINICAL INDICATION:Female, 47 years old with history of Neuro deficit, acute, stroke suspected; PHH, Neuro symptoms TECHNIQUE: Axially acquired helical CT angiogram of the head and neck was obtained with contrast. Axi al images are supplemented with 3D reconstructions [facility] NASCET criteria used. Contrast used:65 mL of Isovue 300 with IV Contrast, Oral contrast used: None. FINDINGS: CTA HEAD: No evidence of acute intracranial hemorrhage, mass effect, or midline shift. The ventricles, sulci, a nd cisterns are unremarkable. The visualized portions of the internal carotid arteries, middle cerebral arteries, anterior cerebral arteries, and posterior cerebral arteries are patent. The basilar and vertebral arteries are patent. CTA NECK: Right Carotid System: The common carotid artery and external carotid artery are patent. The carotid bifurcation demonstrate s no evidence of hemodynamically significant stenosis. The remaining portions of the internal carotid artery demonstrate normal size without significant narrowing. Left Carotid System: The common carotid artery and external carotid artery are patent. The carotid bifurcation demonstrate s no evidence of hemodynamically significant stenosis. The remaining portions of the internal carotid artery demonstrate normal size without significant narrowing. Vertebral arteries are patent without evidence hemodynamically significant stenosis. There is a three-vessel aortic arch. The origins of the great vessels are patent. No evidence of hemo dynamically significant stenosis. Mild atherosclerotic disease of the aortic arch. IMPRESSION: 1. No evidence of dissection of the cervical internal carotid arteries or vertebral arteries or any e vidence of significant stenosis at the carotid bifurcations. 2. No evidence of intracranial high-grade stenosis or intracranial aneurysm.
[2022-09-25] MEDS ORDERED: ASPIRIN 325 MG TAB PO STA (10:17)
--- NOTE | 2022-09-25 13:41 | P.HPIM ---
History of Present Illness H&P Date: 09/25/22 Chief Complaint: Left-sided weakness/numbness 47-year-old woman with medical history of CAD, hypertension, hyperlipidemia, depression presented with left-sided weakness/numbness. Patient says that she woke up in her usual state of health, about 30 minutes after she woke up she started to experience some left-sided weakness/numbness. She also had some slurring of speech, and felt that her left side was discoordinated when attempting to scroll through her phone or brush her teeth. She became subsequently concerned about having a TIA/stroke and therefore presented to the hospital for further evaluation. She denies fevers, chills, nausea, vomiting, chest pain, palpitations, sick to be, presyncopal, cough, dyspnea, abdominal pain, constipation, diarrhea, dysuria. In the emergency room, patient was afebrile, 132/97, heart rate 50, 98% on room air. CBC is unremarkable. His metabolic panel was unremarkable. Liver function tests are unremarkable. Troponin was less than 0.012. Coags are unremarkable. EKG showed normal sinus rhythm with no evidence of ischemia. Chest x-ray demonstrated prominent right sided heart, otherwise clear parenchyma with no increased pulmonary vascularity, no overt signs of heart failure or parenchymal abnormalities. Brain CT was negative for acute intracranial process, stable left frontal lobe injury. CT angiography was negative for dissection of the cervical internal carotid arteries or vertebral arteries or any stenosis. Case was discussed with the emergency room physician and decision was made to admit the patient to observation for further workup. All Systems reviewed and pertinent positives and negatives noted in HPI, all other symptoms are negative Gen: in no apparent distress, resting comfortably in bed Eyes: PERRL, no scleral injection or icterus HENT: normocephalic, atraumatic, good hearing acuity, moist mucous membranes Neck: no tracheal deviation, full range of motion Resp: good air exchange, breathing comfortably with no accessory muscle use, no tactile fremitus CVS: good distal perfusion x 4, no pitting edema GI: soft, NTTP, ND, no hepatosplenomegaly : no suprapubic tenderness, no CVAT, mota catheter not present MSK: no clubbing, no cyanosis, no noted contractures of extremities Skin: no noted rashes, petechiae; temperature of skin is appropriate Neuro: moving all extremities without signs of weakness, CN II-XII intact, [id number] testing was intact bilaterally Psych: cooperative, euthymic mood, insight and judgment intact Assessment: Left-sided weakness, numbness CAD Hypertension Hyperlipidemia Depression Plan: Vital signs reviewed and noted in the HPI Lab work reviewed and noted in the HPI EKG and CXR are personally interpreted and noted in the HPI Case was discussed with the Emergency Room provider and decision was made to admit the patient for TIA workup Neurology consulted MRI of the brain is ordered Echocardiogram is ordered Lipid panel, A1c, TSH ordered CBC, basic metabolic panel, magnesium ordered for tomorrow Aspirin 81 mg, atorvastatin 80 mg at bedtime PT/OT ordered Patient is full code Past Medical History Past Medical History: Asthma, Coronary Artery Disease (CAD), Heart Failure, GERD/Reflux, Hyperlipidemia, Hypertension, Myocardial Infarction ([place]), Pneumonia Additional Past Medical History / Comment(s): Pt has covid/+covid tests 05/31/21 and 06/05/21 with symptoms starting on 05/31/21, CHF once in 2019, chronic gerd, urinary leakage. Last Myocardial Infarction Date:: 05/20/18 History of Any Multi-Drug Resistant Organisms: None Reported Past Surgical History: Section, Heart Catheterization With Stent Additional Past Surgical History / Comment(s): PCI with stents to RCA 2014 and 2017, Past Anesthesia/Blood Transfusion Reactions: No Reported Reaction Date of Last Stent Placement:: 05/20/18 Past Psychological History: Anxiety, Depression Smoking Status: Current every day smoker - Past Family History Mother Family Medical History: Diabetes Mellitus, Hyperlipidemia, Hypertension Father Family Medical History: Coronary Artery Disease (CAD) Additional Family Medical History / Comment(s): CABG Brother(s) Family Medical History: Coronary Artery Disease (CAD), Myocardial Infarction ([place]) Additional Family Medical History / Comment(s): FROM [place] AT 33 Y/O Medications and Allergies Home Medications Medication Instructions Recorded Confirmed Type Metoprolol Tartrate [Lopressor] 25 mg PO BID #60 tab 09/29/14 09/25/22 Rx Omeprazole [PriLOSEC] 40 mg PO BID 01/08/15 09/25/22 History Atorvastatin [Lipitor] 80 mg PO DAILY 06/10/21 09/25/22 History Furosemide [Lasix] 20 mg PO HS 06/10/21 09/25/22 History Losartan Potassium [Cozaar] 25 mg PO HS 06/10/21 09/25/22 History Potassium Chloride [Klor-Con 20] 20 meq PO DAILY 06/10/21 09/25/22 History ALPRAZolam [Xanax] 0.25 mg PO BID PRN 09/25/22 09/25/22 History Aspirin EC [Ecotrin] 325 mg PO HS 09/25/22 09/25/22 History Ergocalciferol [Vitamin D2 (1250 1,250 mcg PO SA 09/25/22 09/25/22 History Mcg = 88734 Iu)] Escitalopram [Lexapro] 10 mg PO DAILY 09/25/22 09/25/22 History Allergies Allergy/AdvReac Type Severity Reaction Status Date / Time No Known Allergies Allergy Verified 09/25/22 11:42 Physical Exam Osteopathic Statement: *. No significant issues noted on an osteopathic struc tural exam other than those noted in the History and Physical/Consult. Vitals: Vital Signs Temp Pulse Resp BP Pulse Ox 09/25/22 13:30 98.0 F 50 L 18 132/97 98 09/25/22 11:05 60 16 143/75 97 09/25/22 10:00 58 L 18 114/64 97 09/25/22 08:17 98.7 F 68 18 132/62 98 Intake and Output 09/24/22 09/25/22 09/25/22 22:59 06:59 14:59 Other: Weight 92.986 kg Results CBC & Chem 7: 09/25/22 08:47 09/25/22 08:47 Labs: Abnormal Lab Results - Last 24 Hours (Table) 09/25/22 09/25/22 09/25/22 Range/Units 08:47 08:47 08:47 RDW 18.2 H (11.5-15.5) % APTT 20.5 L (22.0-30.0) sec Creatinine 0.50 L (0.52-1.04) mg/dL Glucose 114 H (74-99) mg/dL
[2022-09-25] MEDS ORDERED: ALPRAZolam 0.25 MG TAB PO PRN (14:52)
--- NOTE | 2022-09-25 15:47 | P.CNNES ---
History of Present Illness Consult date: 09/25/22 Reason for Consult: TIA History of Present Illness: The patient is a 47-year-old female who is seen in neurologic consultation on September 25, 2022, via teleneurology. The patient reportedly had an episode of changes in vision/difficulty focusing and slurred speech, lasting for approximately 30 minutes. The patient also noted numbness, tingling and weakness in her left upper greater than lower extremity. The patient states that she called her son, who was present in the home. She says she had difficulty using her cell phone. He did not report any facial weakness he did note changes in the patient's speech. Patient states that she knew she needed to come to the hospital however decided to take a shower first. While she was in the shower, the patient noted difficulty with balance. She elected to sit, on the shower bench. She noted numbness and tingling in her left lower extremity also. The patient was brought into the emergency department by her mother. She says that her visual symptoms lasted for about 30-40 minutes. Her other symptoms lasted for 3-4 hours. The patient denies headache, difficulty swallowing, loss of vision and diplopia. She denies chest pain, shortness of breath. The patient denies a history of similar symptoms. CT scan of the brain was performed in the emergency department. It was negative for acute hemorrhage and infarct. CT angiogram of the head and neck was negative for significant stenosis and large vessel occlusion. The patient has a history of coronary artery disease with stent placement. Past Medical History Past Medical History: Asthma, Coronary Artery Disease (CAD), Heart Failure, GERD/Reflux, Hyperlipidemia, Hypertension, Myocardial Infarction ([place]), Pneumonia Additional Past Medical History / Comment(s): Pt has covid/+covid tests 05/31/21 and 06/05/21 with symptoms starting on 05/31/21, CHF once in 2019, chronic gerd, urinary leakage. Last Myocardial Infarction Date:: 05/20/18 History of Any Multi-Drug Resistant Organisms: None Reported Past Surgical History: Section, Heart Catheterization With Stent Additional Past Surgical History / Comment(s): PCI with stents to RCA 2014 and 2017, Past Anesthesia/Blood Transfusion Reactions: No Reported Reaction Date of Last Stent Placement:: 05/20/18 Past Psychological History: Anxiety, Depression Smoking Status: Current every day smoker - Past Family History Mother Family Medical History: Diabetes Mellitus, Hyperlipidemia, Hypertension Father Family Medical History: Coronary Artery Disease (CAD) Additional Family Medical History / Comment(s): CABG Brother(s) Family Medical History: Coronary Artery Disease (CAD), Myocardial Infarction ([place]) Additional Family Medical History / Comment(s): FROM [place] AT 33 Y/O Medications and Allergies Home Medications Medication Instructions Recorded Confirmed Type Metoprolol Tartrate [Lopressor] 25 mg PO BID #60 tab 09/29/14 09/25/22 Rx Omeprazole [PriLOSEC] 40 mg PO BID 01/08/15 09/25/22 History Atorvastatin [Lipitor] 80 mg PO DAILY 06/10/21 09/25/22 History Furosemide [Lasix] 20 mg PO HS 06/10/21 09/25/22 History Losartan Potassium [Cozaar] 25 mg PO HS 06/10/21 09/25/22 History Potassium Chloride [Klor-Con 20] 20 meq PO DAILY 06/10/21 09/25/22 History ALPRAZolam [Xanax] 0.25 mg PO BID PRN 09/25/22 09/25/22 History Aspirin EC [Ecotrin] 325 mg PO HS 09/25/22 09/25/22 History Ergocalciferol [Vitamin D2 (1250 1,250 mcg PO SA 09/25/22 09/25/22 History Mcg = 60661 Iu)] Escitalopram [Lexapro] 10 mg PO DAILY 09/25/22 09/25/22 History Allergies Allergy/AdvReac Type Severity Reaction Status Date / Time No Known Allergies Allergy Verified 09/25/22 11:42 Physical Examination - Vital Signs Vital Signs: Vital Signs Temp Pulse Resp BP Pulse Ox 09/25/22 11:05 60 16 143/75 97 09/25/22 10:00 58 L 18 114/64 97 09/25/22 08:17 98.7 F 68 18 132/62 98 Intake and Output 09/24/22 09/25/22 09/25/22 22:59 06:59 14:59 Other: Weight 92.986 kg Gen.: The patient is seated on the edge of the gurney in the emergency department. She is in no acute distress. She is obese. She appears older than her stated age. HEENT: Head is atraumatic, normocephalic. Fundus not visualized. There is no scleral icterus. Mucous membranes are moist. Neck: Supple without carotid bruits Heart: Regular rate and rhythm Lungs: Essentially clear to auscultation Extremities: Without edema Neurological examination Mental status: The patient is awake, alert and oriented 3. Her speech is clear. There is no dysarthria or aphasia. Cranial nerves: Pupils are equal at 3 mm and reactive. Visual tee are full to confrontation. Extraocular movements are intact. Facial sensation is intact. There is no facial asymmetry. Hearing is grossly intact. Uvula and palate are midline. Shoulder shrug is symmetric. Tongue protrudes midline. Motor: Strength is 5/5 throughout with the exception of the left hip flexor at 4/5. Sensation: Intact to light touch throughout. There is no extinction with double simultaneous stimulation. Deep tendon reflexes: 2+/4+ in the bilateral upper extremities. Patellar r eflexes are 3+/4+. Coordination: Finger to nose, heel to samaniego and rapid alternating movements are intact Gait: Not assessed Results - Laboratory Findings CBC and BMP: 09/25/22 08:47 09/25/22 08:47 Abnormal Lab Findings: Abnormal Labs 09/25/22 09/25/22 09/25/22 08:47 08:47 08:47 RDW 18.2 H APTT 20.5 L Creatinine 0.50 L Glucose 114 H - Diagnostic Findings Comments: CT scan of the brain and CT angiogram images have been personally reviewed Assessment and Plan Assessment: 1. Transient ischemic attack: The patient Has multiple stroke risk factors including hypertension, hyperlipidemia, coronary artery disease, tobacco abuse and obesity Plan: 1. MRI brain has been ordered 2. The patient should be started on Plavix 75 mg daily 3. Continue high-dose statin 4. Transesophageal echocardiogram 5. Lipid panel, hemoglobin A1c and TSH should be assessed 6. PT OT and speech therapy consultations 7. Consider dietary evaluation for heart healthy diet Time with Patient: Greater than 30 (Spent 60 minutes caring for this patient today including obtaining a history, doing and examination, reviewing imaging, labs, chart documentation, placing orders and creating this note)
[2022-09-25] MEDS: CLOPIDOGREL 75 MG TAB PO SCH (16:40)
[2022-09-25] MEDS: PANTOPRAZOLE 40 MG TABLET PO SCH (19:49)
[2022-09-25] MEDS: METOPROLOL TARTRATE 25 MG TAB PO SCH (19:49)
[2022-09-25] MEDS: LOSARTAN 25 MG TAB PO SCH (19:49)
[2022-09-25] MEDS: FUROSEMIDE 20 MG TAB PO SCH (19:49)
[2022-09-25] MEDS: ATORVASTATIN 80 MG TAB PO SCH (19:49)
[2022-09-26 07:44] LABS: Anisocytosis Slight; Basophils % (A) 1 %; Eosinophils # (A) 0.4 k/uL (0-0.7); Eosinophils % (A) 6 %; HCT 33.7 % (34.0-46.0); HGB 10.6 gm/dL (11.4-16.0); Hypochromasia Slight; Lymphocytes # (A) 1.9 k/uL (1.0-4.8); Lymphocytes % (A) 29 %; MCH 25.8 pg (25.0-35.0); MCHC 31.4 g/dL (31.0-37.0); MCV 82.3 fL (80.0-100.0); Mean Platelet Volume 9.4; Microcytosis Slight; Monocytes # (A) 0.3 k/uL (0-1.0); Monocytes % (A) 5 %; Neutrophils # (A) 3.6 k/uL (1.3-7.7); Neutrophils % (A) 56 %; Platelet Count 238 k/uL (150-450); Poikilocytosis Slight; RDW 18.3 % (11.5-15.5); WBC 6.5 k/uL (3.8-10.6)
[2022-09-26 08:17] LABS: African American GFR (CKD) >90 (>60 ml/min/1.73 sqM); Anion Gap 4 mmol/L; Blood Urea Nitrogen 11 mg/dL (7-17); Calcium 8.6 mg/dL (8.4-10.2); Carbon Dioxide 30 mmol/L (22-30); Chloride 105 mmol/L (98-107); Glucose 106 mg/dL (74-99); Magnesium 2.2 mg/dL (1.6-2.3); Non-African American GFR(CKD) >90 (>60 ml/min/1.73 sqM); Potassium 4.4 mmol/L (3.5-5.1); Sodium 139 mmol/L (137-145)
[2022-09-26] MEDS: CLOPIDOGREL 75 MG TAB PO SCH (08:54)
[2022-09-26] MEDS: ESCITALOPRAM 10 MG TAB PO SCH (08:54)
[2022-09-26] MEDS: ASPIRIN 81 MG PO SCH (08:54)
[2022-09-26] MEDS: PANTOPRAZOLE 40 MG TABLET PO SCH ×2 (08:55→20:04)
[2022-09-26] MEDS: METOPROLOL TARTRATE 25 MG TAB PO SCH ×2 (08:55→20:04)
[2022-09-26] MEDS ORDERED: ASPIRIN 325 MG TAB PO SCH (09:00)
--- NOTE | 2022-09-26 11:05 | US ---
EXAMINATION TYPE: US venous doppler duplex LE BI DATE OF EXAM: 09/26/2022 10:29 AM COMPARISON: NONE CLINICAL INDICATION: Female, 47 years old with history of dvt; DVT SIDE PERFORMED: Bilateral TECHNIQUE: The lower extremity deep venous system is examined utilizing real time linear array sonog keesha with graded compression, doppler sonography and color-flow sonography. VESSELS IMAGED: Common Femoral Vein Deep Femoral Vein Greater Saphenous Vein * Femoral Vein Popliteal Vein Small Saphenous Vein * Proximal Calf Veins (* superficial vessels) Right Leg: Negative for DVT Left Leg: Negative for DVT IMPRESSION: 1. Bilateral lower extremity ultrasound negative for deep venous thrombosis.
[2022-09-26] MEDS ORDERED: SODIUM CHLORIDE 0.9% 500 ML 500 ML IV ONE (11:54)
[2022-09-26] MEDS ORDERED: IV FLUID CONTINUATION 1,000 ML IV ONE (11:54)
[2022-09-26] MEDS: BENZOCAINE SPRAY 1 CAN MUCOUS MEM ONE ×2 (12:04→12:10)
[2022-09-26] MEDS ORDERED: fentaNYL (PF) 50 MCG/1 ML VIAL IVP ONE (12:10)
[2022-09-26] MEDS ORDERED: MIDAZOLAM 2 MG/2 ML VIAL IVP ONE ×2 (12:10→12:12)
--- NOTE | 2022-09-26 12:21 | P.PCN ---
Date of Procedure: 09/26/22 Operative Findings: TRANSESOPHAGEAL ECHOCARDIOGRAM WOUND/OSTOMY NURSE: ANITA DAVIS MD, RPVI INDICATION: Rule out cardiac source of embolization SEDATION: Conscious sedation COMPLICATION: None LEVEL OF SEDATION Moderate to sedation length of 16 minutes PROCEDURE DESCRIPTION: After obtaining an informed consent, the patient was brought to transesophageal echocardiogram room. Pulse oximetry and heart monitors were attached to the patient. The patient throat was sprayed using lidocaine. The patient was turned into left lateral position. After that a bite guard was placed. After an appropriate conscious sedation was initiated, the transesophageal echocardiogram was advanced through a bite guard into the mid esophagus. A 2-D echocardiogram images, color Doppler images, continuous wave images, pulse-wave images, of various cardiac structure were performed. After that the transesophageal echocardiogram probe was advanced into the stomach and fixed to obtain transgastric view was. The probe was brought into the mid esophagus. Inter-atrial septum was interrogated using 2D images, color Doppler images, and then contrast study. After that transesophageal echocardiogram was withdrawn out and upon withdrawing the descending thoracic aorta all the way up to the arch was evaluated. FINDING: The left ventricular dimension and systolic function appeared to be within normal limits was EF around 50-55%. The right ventricle appeared to be of normal size and function. The left atrium and right atrium are mildly dilated. The left atrial appendage appeared to be free from any thrombus. The interatrial septum appeared to be intact. The aortic valve is trileaflet valve with no stenosis with mitral insufficiency. The mitral valve appeared to be mildly thickened with mild to moderate MR only. Normal tricuspid valve and pulmonic valve. Trace pericardial effusion was identified CONCLUSION: 1. No evidence of cardiac source of embolization. Intact interatrial septum. Intact left atrial appendage 2. Normal biventricular dimension and systolic function 3. Thickened mitral valve leaflets with mild to moderate MR. 4. Trileaflet aortic valve with no stenosis was mild insufficiency 5. Normal tricuspid valve and pulmonic valve 6. Trivial circumferential pericardial effusion
--- NOTE | 2022-09-26 12:40 | P.PN ---
Subjective Progress Note Date: 09/26/22 Hospital course: Patient is a very pleasant 39-year-old female with a past medical history CAD status post stenting 2, hypertension, hyperlipidemia, nicotine dependence, and depression. She presented to the emergency department with a chief complaint of left-sided weakness and numbness. Patient reports sudden onset left upper and lower extremity weakness/numbness accompanied by mild slurring of speech, balance difficulties, and discoordination. Patient reports slurred speech resolved without intervention within 30 minutes and reports left upper and lower extremity weakness/numbness and discoordination lasted approximately 2-3 hours prior to resolving spontaneously without intervention. Patient underwent full evaluation in the emergency department. EKG was completed showing sinus bradycardia at 52 bpm with T-wave inversion in inferior leads [address] brain completed in radiology report reviewed stating no acute intercranial process and a stable left frontal lobe injury when compared to previous CT completed on 01/08/15. CTA head showing no evidence of intracranial stenosis or aneurysm. CTA neck negative for dissection of the cervical internal carotid arteries and vertebral arteries or any evidence of significant stenosis at the carotid bifurcations. Labs were completed and reviewed. CBC was unremarkable. Coagulation profile showing no significant abnormalities, d-dimer negative at 0.34. BMP unremarkable with blood glucose of 114 upon arrival. Liver profile unremarkable. Troponin negative at less than 0.012. TSH 0.795. Hemoglobin A1c was elevated at 6.4%. Physical exam: Vital signs reviewed and stable. General: Nontoxic, no distress and appears stated age. Derm: Skin warm and dry, normal coloration for ethnicity. Head: Atraumatic, normocephalic and symmetric. Eyes: EOMs intact, no lid lag, and anicteric sclera Mouth: no lip lesions, mucus membranes moist Cardiovascular: regular rate and rhythm with normal S1S2, no murmur, positive posterior tibial pulses bilaterally, and cap refill < 2 seconds. Lungs: Respirations even, regular, and unlabored on room air. Lungs CTA bilaterally, no rhonchi, no rales, no wheezing, and no accessory muscle usage. Abdominal: soft, nontender to palpation, no guarding, no appreciable organomegaly Ext: ROM is intact and symmetrical with equal and strong strength. No gross muscle atrophy, no edema, no contractures Neuro: Speech clear, face symmetrical and CN II-XII grossly intact with no noted focal neuro deficits. GCS 15. Psych: Alert and oriented to person, place, time, and situation. Appropriate and pleasant affect. Assessment and Plan of Care: Left-sided weakness/numbness History of CAD with previous stenting 2 Hypertension Hyperlipidemia Depression Newly diagnosed diabetes mellitus type 2, Elevated hemoglobin A1c of 6.4% -Reviewed radiology reports for CT brain as well as CTA head and neck, all were negative for acute intercranial process, dissection, aneurysm, or carotid stenosis. -Patient scheduled to undergo MRI later this afternoon. -Neurology following and discussed plan of care with neurologist whom is recommending a AZRA. -Cardiology consulted for AZRA -Order placed for transesophageal echocardiogram to be completed, will follow up on cardiology report once completed and available. -Continue telemetry monitoring. -Continue neuro checks every 4 hours. Currently patient with no noted neurological deficits at this time. -Continue atorvastatin 80 mg nightly, aspirin 81 mg daily and Plavix 75 mg daily until further recommendations by neurologist once MRI results are available. -DVT prophylaxis with Lovenox. -Had long discussion with patient regarding smoking cessation and risks of continued use. -Hemoglobin A1c elevated at 6.4%. We will plan to start patient on Glucophage 500 mg twice a day upon discharge. Sinus bradycardia -Patient on metoprolol 25 mg twice a day, heart rate ranging from 50s to 60s at rest but per RN was dipping down to high 30s and low 40s overnight. Parameters placed on metoprolol to hold for heart rate less than 60, otherwise we will continue with daily medication regimen. CODE STATUS: Full code DVT prophylaxis: Lovenox Discussed with: Patient, neurologist, and RN Anticipated discharge date: 24-[address]: Home Patient was seen independently by Nurse Pracitioner. This document was prepared using [employer] dictation software. Please allow for errors in furnace cleaner, while rare they do occur. Objective - Vital Signs Vital signs: Vital Signs Temp 97.9 F 09/26/22 03:41 Pulse 53 L 09/26/22 03:41 Resp 18 09/26/22 03:41 BP 112/63 09/26/22 03:41 Pulse Ox 94 L 09/26/22 03:41 FiO2 Intake & Output 09/25/22 09/26/22 09/26/22 18:59 06:59 18:59 Intake Total 0 Output Total 0 0 Balance 0 0 Weight 92.986 kg Intake: Oral 0 Output: Gastric Drainage 0 Urine 0 0 Stool 0 0 Urine/Stool Mix 0 Emesis 0 0 Oral Regurgitation 0 Other 0 Other: Voiding Method Toilet # Voids 0 1 # Bowel Movements 0 0 - Labs CBC & Chem 7: 09/26/22 07:20 09/26/22 07:20 Labs: Abnormal Lab Results - Last 24 Hours (Table) 09/25/22 09/25/22 09/25/22 Range/Units 08:47 08:47 08:47 Hgb (11.4-16.0) gm/dL Hct (34.0-46.0) % RDW 18.2 H (11.5-15.5) % APTT 20.5 L (22.0-30.0) sec Creatinine 0.50 L (0.52-1.04) mg/dL Glucose 114 H (74-99) mg/dL Hemoglobin A1c (0.0-6.0) % 09/25/22 09/26/22 Range/Units 08:47 07:20 Hgb 10.6 L (11.4-16.0) gm/dL Hct 33.7 L (34.0-46.0) % RDW 18.3 H (11.5-15.5) % APTT (22.0-30.0) sec Creatinine (0.52-1.04) mg/dL Glucose (74-99) mg/dL Hemoglobin A1c 6.4 H (0.0-6.0) % Assessment and Plan Assessment: Rickey Mendenhall NP rendered care for this patient independently, reviewed the findings and plan as documented in the note above. I did not physically speak with our examined the patient on this date.
[2022-09-26] MEDS: ENOXAPARIN 40 MG/0.4 ML SYRINGE SQ SCH (12:43)
--- NOTE | 2022-09-26 15:15 | P.CRDCN ---
History of Present Illness Consult date: 09/26/22 Reason for Consult (text): AZRA History of present illness: History of present illness: This is a 47-year-old female patient of Dr. Hightower with past medical history of coronary artery disease post angioplasty to the RCA 2 in setting of acute in [facility] ST elevated [place] in 2014, obesity, hypertension, dyslipidemia, smoking history. She was last seen in the office in May 2021.Patient gives history that around 6 AM she was having trouble focusing when she was on her phone. She felt a shock of light went to wipe her nose and she hit herself. Her left arm lacks coordination which lasted about 1-1/2 hours. It eventually wore off. She called her son and he thought she had a facial droop and her son told her that she was talking funny. She denies having any dizziness or lightheadedness, no chest pain, no palpitations, no shortness of breath. She denies diabetes history. She does have history of hypertension. She denies any history of atrial fibrillation.patient has been seen by neurology and recommended TEEanalysis consult was generated. Neurology has started the patient on Plavix and she is also on aspirin 81 mg daily, Lipitor 80 mg at bedtime EKG sinus bradycardia Chest x-ray: no acute process bilateral lower extremity Doppler study negative for DVT WBC 6.5, hemoglobin 10.6, platelet count 238. D-dimer 0.34. Sodium 139, potassium 4.4, BUN 11 creatinine 0.54. Troponin negative 1. TSH 0.7 Home cardiac medications:aspirin 325 mg daily, Lipitor 80 mg daily, Lasix 20 g at bedtime, losartan 25 mg at bedtime, Lopressor 25 mg twice daily, potassium chloride 20 mEq daily Cardiac catheterization 09/2014 30% proximal LAD, 80% distal RCA and stent in the distal RCA cardiac catheterization 05/2021 revealed patent stents within the right coronary artery, mild nonobstructive disease distally. AZRA 09/26/2022: No evidence of cardiac source of embolization. Intact into her atrial septum. Intact left atrial appendage. Normal biventricular dimension and systolic function. Thickened mitral valve leaflets with mild to moderate MR. Trileaflet aortic valve with no stenosis with mild insufficiency. Normal tricuspid valve and pulmonic valve. Trivial circumferential pericardial effusion. Review Of Systems: At the time of my evaluation: Constitutional: No fever, no chills. No weakness, fatigue or lethargy. EENT: No headache. No dizziness. Lungs: No shortness of breath, cough, no sputum production. No wheezing. Cardiovascular: No chest pain, no lower extremity edema. No palpitations. No paroxysmal nocturnal dyspnea. No orthopnea. No lightheadedness or dizziness. No syncopal episodes. Abdominal: No abdominal pain. No nausea, vomiting. No diarrhea. No constipation. No bloody or tarry stools. Musculoskeletal: No myalgias. No muscle weakness, no frequent falls. No back pain. No neck pain. Integumentary: No wounds. No rash. No unusual bruising. Neurologic: No aphasia. No facial droop. No change in mentation. No head injury. No headache. Physical examination: Gen: This is an obese 47-year-old female. She is resting in her room and appears to be comfortable and in no acute distress. VS: reviewedblood pressure 123/80, pulse ox 98% on room air, heart rate 49-51. HEENT: Head is atraumatic, normocephalic. Pupils equal, round. Sclerae is anicteric. NECK: Supple. No JVD. . LUNGS: Clear to auscultation. No wheezes or rhonchi. No intercostal retractions. HEART: Regular rate and rhythm. No murmur. ABDOMEN: Soft No tenderness. EXTREMITIES: No pedal edema. No calf tenderness. NEUROLOGICAL: Patient is awake, alert and oriented x3. Assessment: TIA coronary artery disease status post angioplasty of the RCA 2 Obesity Hypertension Dyslipidemia Smoking history Plan: continue cardiac medications Will proceed with loop monitor implantation Further recommendations to follow based upon clinical course Thank you kindly for this consultation. Nurse practitioner note has been reviewed, I agree with documented findings and plan of care. Patient was seen and examined. Past Medical History Past Medical History: Asthma, Coronary Artery Disease (CAD), Heart Failure, GERD/Reflux, Hyperlipidemia, Hypertension, Myocardial Infarction (ND), Pneumonia Additional Past Medical History / Comment(s): Pt has covid/+covid tests 05/31/21 and 06/05/21 with symptoms starting on 05/31/21, CHF once in 2019, chronic gerd, urinary leakage. Last Myocardial Infarction Date:: 05/20/18 History of Any Multi-Drug Resistant Organisms: None Reported Past Surgical History: Section, Heart Catheterization With Stent Additional Past Surgical History / Comment(s): PCI with stents to RCA 2014 and 2017, Past Anesthesia/Blood Transfusion Reactions: No Reported Reaction Date of Last Stent Placement:: 05/20/18 Past Psychological History: Anxiety, Depression Smoking Status: Current every day smoker - Past Family History Mother Family Medical History: Diabetes Mellitus, Hyperlipidemia, Hypertension Father Family Medical History: Coronary Artery Disease (CAD) Additional Family Medical History / Comment(s): CABG Brother(s) Family Medical History: Coronary Artery Disease (CAD), Myocardial Infarction (ND) Additional Family Medical History / Comment(s): FROM [place] AT 33 Y/O Medications and Allergies Home Medications Medication Instructions Recorded Confirmed Type Metoprolol Tartrate [Lopressor] 25 mg PO BID #60 tab 09/29/14 09/25/22 Rx Omeprazole [PriLOSEC] 40 mg PO BID 01/08/15 09/25/22 History Atorvastatin [Lipitor] 80 mg PO DAILY 06/10/21 09/25/22 History Furosemide [Lasix] 20 mg PO HS 06/10/21 09/25/22 History Losartan Potassium [Cozaar] 25 mg PO HS 06/10/21 09/25/22 History Potassium Chloride [Klor-Con 20] 20 meq PO DAILY 06/10/21 09/25/22 History ALPRAZolam [Xanax] 0.25 mg PO BID PRN 09/25/22 09/25/22 History Aspirin EC [Ecotrin] 325 mg PO HS 09/25/22 09/25/22 History Ergocalciferol [Vitamin D2 (1250 1,250 mcg PO SA 09/25/22 09/25/22 History Mcg = 29116 Iu)] Escitalopram [Lexapro] 10 mg PO DAILY 09/25/22 09/25/22 History Allergies Allergy/AdvReac Type Severity Reaction Status Date / Time No Known Allergies Allergy Verified 09/25/22 11:42 Physical Exam Vitals: Vital Signs Temp Pulse Pulse Resp BP BP Pulse Ox 09/26/22 08:44 98.1 F 50 L 20 126/58 95 09/26/22 03:41 97.9 F 53 L 18 112/63 94 L 09/26/22 01:01 56 L 09/25/22 23:21 97.9 F 56 L 18 128/73 95 09/25/22 19:47 98.1 F 58 L 18 126/76 96 09/25/22 15:30 98.4 F 70 18 160/72 97 09/25/22 14:00 70 18 09/25/22 13:30 98.0 F 50 L 18 132/97 98 09/25/22 11:05 60 16 143/75 97 09/25/22 10:00 58 L 18 114/64 97 Intake and Output 09/25/22 09/26/22 09/26/22 22:59 06:59 14:59 Intake Total 0 Output Total 0 Balance 0 Intake: Oral 0 Output: Gastric Drainage 0 Urine 0 Stool 0 Urine/Stool Mix 0 Emesis 0 Oral Regurgitation 0 Other 0 Other: Voiding Method Toilet Toilet Toilet # Voids 0 1 1 # Bowel Movements 0 Results 09/26/22 07:20 09/26/22 07:20 CBC 09/26/22 Range/Units 07:20 WBC 6.5 (3.8-10.6) k/uL RBC 4.10 (3.80-5.40) m/uL Hgb 10.6 L (11.4-16.0) gm/dL Hct 33.7 L (34.0-46.0) % Plt Count 238 (150-450) k/uL Comprehensive Metabolic Panel 09/26/22 Range/Units 07:20 Sodium 139 (137-145) mmol/L Potassium 4.4 (3.5-5.1) mmol/L Chloride 105 (98-107) mmol/L Carbon Dioxide 30 (22-30) mmol/L BUN 11 (7-17) mg/dL Creatinine 0.54 (0.52-1.04) mg/dL Glucose 106 H (74-99) mg/dL Calcium 8.6 (8.4-10.2) mg/dL Current Medications Generic Name Dose Route Start Last Admin Trade Name Freq PRN Reason Stop Dose Admin Alprazolam 0.25 mg 09/25/22 14:52 Alprazolam 0.25 Mg Tab PO BID PRN Anxiety Aspirin 81 mg 09/26/22 09:00 09/26/22 08:54 Aspirin 81 Mg PO 81 mg DAILY KIRILL Administration Atorvastatin Calcium 80 mg 09/25/22 21:00 09/25/22 19:49 Atorvastatin 80 Mg Tab PO 80 mg HS KIRILL Administration Clopidogrel Bisulfate 75 mg 09/25/22 15:45 09/26/22 08:54 Clopidogrel 75 Mg Tab PO 75 mg DAILY KIRILL Administration Escitalopram Oxalate 10 mg 09/26/22 09:00 09/26/22 08:54 Escitalopram 10 Mg Tab PO 10 mg DAILY KIRILL Administration Furosemide 20 mg 09/25/22 21:00 09/25/22 19:49 Furosemide 20 Mg Tab PO 20 mg HS KIRILL Administration Losartan Potassium 25 mg 09/25/22 21:00 09/25/22 19:49 Losartan 25 Mg Tab PO 25 mg HS KIRILL Administration Metoprolol Tartrate 25 mg 09/25/22 21:00 09/26/22 08:55 Metoprolol Tartrate 25 Mg Tab PO Not Given BID COUNT INCLUDES THE [facility] Pantoprazole Sodium 40 mg 09/25/22 21:00 09/26/22 08:55 Pantoprazole 40 Mg Tablet PO 40 mg BID KIRILL Administration Intake and Output 09/25/22 09/26/22 09/26/22 22:59 06:59 14:59 Intake Total 0 Output Total 0 Balance 0 Intake: Oral 0 Output: Gastric Drainage 0 Urine 0 Stool 0 Urine/Stool Mix 0 Emesis 0 Oral Regurgitation 0 Other 0 Other: Voiding Method Toilet Toilet Toilet # Voids 0 1 1 # Bowel Movements 0 09/26/22 07:20 09/26/22 07:20
[2022-09-26] MEDS: SODIUM CHLORIDE 0.9% 1,000 ML IV SCH ×2 (16:51→17:54)
[2022-09-26] MEDS ORDERED: LIDOCAINE 1% INJ 10MG/ML (20 ML MDV) ONE (17:09)
[2022-09-26] MEDS ORDERED: SODIUM CHLORIDE 0.9% 250 ML IV ONE (17:15)
[2022-09-26] MEDS ORDERED: LIDOCAINE 1% INJ 10MG/ML (30 ML VIAL-PF) SQ ONE (17:22)
[2022-09-26 17:31] LABS: Chol/HDL Ratio 3.69 Ratio; LDL Cholesterol,Calculated 80.5 mg/dL (0.0-131.0)
--- NOTE | 2022-09-26 17:33 | P.EPPROC ---
- EP Procedure Note Electrophysiology Procedure Note: Loop monitor implant Primary physicians: Dr. Brown Employee Training Specialist: Dr. Durán Indication: Cryptogenic stroke patient has a JIHAN VASC score of at least 3, female gender hypertension and significant coronary artery disease status post coronary stenting, but no documentation of history of atrial fibrillation so far Patient was brought to the EP lab in a fasting state. Written informed consent was obtained prior to the procedure. The left pectoral area was prepped and draped per protocol. Intravenous antibiotic was administered preoperatively. A subcutaneous Loop monitor was implanted successfully and the wound was closed per protocol. The device was programmed to detect significant carole- arrhythmic and tachy-arrhythmic events, per protocol. Device and programming details: A. fib protocol/cryptogenic stroke protocol
--- NOTE | 2022-09-26 17:38 | P.PRLE ---
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 She has known coronary artery disease status post coronary stenting but her carotid and intracranial vessels did not show any occlusive disease or thromboembolic disease A AZRA did not show any intracardiac masses or interatrial septal defect. Preserved LV systolic function was noted So far on the monitor we have not detected any atrial fibrillation Therefore I implanted a loop monitor to look for any silent atrial fibrillation since her JIHAN VASC score is at least 3 I would recommend anticoagulation if she has documentation of atrial fibrillation, sustained In addition I would also recommend a hematology evaluation to look for any coagulation disorders (although she does not have a history of DVT or pulmonary emboli). Her venous Doppler study in the lower extremities did not reveal any DVT Thank you for entrusting me with the care of the patient Warm regards Sincerely Ahbilash Springer
[2022-09-26] MEDS ORDERED: ACETAMINOPHEN TAB 325 MG TAB PO PRN (17:52)
[2022-09-26] MEDS: FUROSEMIDE 20 MG TAB PO SCH (20:04)
[2022-09-26] MEDS: LOSARTAN 25 MG TAB PO SCH (20:04)
[2022-09-26] MEDS: ATORVASTATIN 80 MG TAB PO SCH (20:04)
--- NOTE | 2022-09-26 20:34 | MR ---
EXAMINATION TYPE: MR brain wo con DATE OF EXAM: 09/26/2022 COMPARISON: Brain 09/25/2022 HISTORY: 47-year-old female with CVA, Left sided weakness. TECHNIQUE: Multiplanar, multisequence images of the brain and brainstem were acquired without IV con trast. Diffusion weighted imaging is performed. FINDINGS: There are approximately 3 foci of restricted diffusion involving the right parietal cortex and subcor tical region measuring up to 4 mm each. These regions show corresponding bright signal on T2 weighted sequence Additionally, on T2/FLAIR weighted sequences, there is minimal subcortical bright signal change later al right frontal lobe and left temporoparietal junction. Additionally, there is chronic white matter encephalomalacia measuring 1.5 x 0.8 cm left thomas radia ta suggesting remote vascular insult. No evidence for mass, mass effect, midline shift, herniation, effacement of basal cisterns, or extra- axial fluid collection. The ventricles and sulci are age-appropriate. Major intracranial flow voids are intact. Dominant left vertebral artery. Midline structures demonstrate normal morphology. The craniocervical junction is normal. Mild mucosal thickening ethmoid air cells. globes are intact. IMPRESSION: 1. Approximately 3 ACUTE foci of punctate cortical/subcortical infarct right parietal cortex. Greater than 6 hours in duration. Right T2/FLAIR signal. No midline shift, mass effect, hydrocephalus, or he rniation. 2. Background trace burden of chronic small vessel ischemic disease.
[2022-09-27 04:16] VITALS: TEMP 98
[2022-09-27] MEDS: ENOXAPARIN 40 MG/0.4 ML SYRINGE SQ SCH (08:19)
[2022-09-27] MEDS: ASPIRIN 81 MG PO SCH (08:20)
[2022-09-27] MEDS: METOPROLOL TARTRATE 25 MG TAB PO SCH ×2 (08:20→12:09)
[2022-09-27] MEDS: ESCITALOPRAM 10 MG TAB PO SCH (08:20)
[2022-09-27] MEDS: PANTOPRAZOLE 40 MG TABLET PO SCH (08:20)
[2022-09-27] MEDS: CLOPIDOGREL 75 MG TAB PO SCH (08:20)
[2022-09-27 08:24] VITALS: BP 134/63; PULSE 51; RESP 16
[2022-09-27] MEDS ORDERED: EZETIMIBE 10 MG TAB PO SCH (09:45)
--- NOTE | 2022-09-27 10:20 | P.PN ---
Subjective Progress Note Date: 09/27/22 History of present illness: This is a 47-year-old female patient of Dr. Hightower with past medical history of coronary artery disease post angioplasty to the RCA 2 in setting of acute inferior ST elevated [place] in 2014, obesity, hypertension, dyslipidemia, smoking history. She was last seen in the office in May 2021.Patient gives history that around 6 AM she was having trouble focusing when she was on her phone. She felt a shock of light went to wipe her nose and she hit herself. Her left arm lacks coordination which lasted about 1-1/2 hours. It eventually wore off. She called her son and he thought she had a facial droop and her son told her that she was talking funny. She denies having any dizziness or lightheadedness, no chest pain, no palpitations, no shortness of breath. She denies diabetes history. She does have history of hypertension. She denies any history of atrial fibrillation.patient has been seen by neurology and recommended TEEanalysis consult was generated. Neurology has started the patient on Plavix and she is also on aspirin 81 mg daily, Lipitor 80 mg at bedtime EKG sinus bradycardia Chest x-ray: no acute process bilateral lower extremity Doppler study negative for DVT WBC 6.5, hemoglobin 10.6, platelet count 238. D-dimer 0.34. Sodium 139, potassium 4.4, BUN 11 creatinine 0.54. Troponin negative 1. TSH 0.7 Home cardiac medications:aspirin 325 mg daily, Lipitor 80 mg daily, Lasix 20 g at bedtime, losartan 25 mg at bedtime, Lopressor 25 mg twice daily, potassium chloride 20 mEq daily Cardiac catheterization 09/2014 30% proximal LAD, 80% distal RCA and stent in the distal RCA cardiac catheterization 05/2021 revealed patent stents within the right coronary artery, mild nonobstructive disease distally. AZRA 09/26/2022: No evidence of cardiac source of embolization. Intact into her atrial septum. Intact left atrial appendage. Normal biventricular dimension and systolic function. Thickened mitral valve leaflets with mild to moderate MR. Trileaflet aortic valve with no stenosis with mild insufficiency. Normal tricuspid valve and pulmonic valve. Trivial circumferential pericardial effusion. 09/27 Patient is seen today in follow-up. She has been ambulating in the hallway without difficulty. Yesterday following AZRA, patient underwent loop recorder implantation. Reviewed lipid panel and would like to see LDL lower than 80. We'll start patient on Zetia in addition to atorvastatin at 80. Patient denies any new complaints. MRI of the brain revealed 3 acute punctate cortical subcortical infarcts in the right parietal lobe. Physical examination: Gen: This is an obese 47-year-old female. She is resting in her room and appears to be comfortable and in no acute distress. VS: reviewed HEENT: Head is atraumatic, normocephalic. Pupils equal, round. Sclerae is anicteric. NECK: Supple. No JVD. . LUNGS: Clear to auscultation. No wheezes or rhonchi. No intercostal retractions. HEART: Regular rate and rhythm. No murmur. ABDOMEN: Soft No tenderness. EXTREMITIES: No pedal edema. No calf tenderness. NEUROLOGICAL: Patient is awake, alert and oriented x3. Assessment: Acute ischemic CVA right parietal lobe coronary artery disease status post angioplasty of the RCA 2 Obesity Hypertension Dyslipidemia Smoking history Plan: continue cardiac medications Patient has been instructed to follow-up with the device clinic in 1 week and follow up with Dr. Fontana in 2 weeks Start patient on Zetia Recommend follow-up with oncology for coagulopathy workup Patient is cleared for discharge from cardiology and we will follow on an as- needed basis. Nurse practitioner note has been reviewed, I agree with documented findings and plan of care. Patient was seen and examined. Objective - Vital Signs Vital signs: Vital Signs Temp 98.0 F 09/27/22 04:00 Pulse 51 L 09/27/22 08:00 Resp 16 09/27/22 08:00 BP 134/63 09/27/22 08:00 Pulse Ox 93 L 09/27/22 08:00 FiO2 Intake & Output 09/26/22 09/27/22 09/27/22 18:59 06:59 18:59 Intake Total 250 Output Total 0 Balance 250 0 Intake: IV 250 Output: Urine 0 Stool 0 Emesis 0 Other: Voiding Method Toilet Toilet # Voids 2 1 # Bowel Movements 0 - Labs CBC & Chem 7: 09/26/22 07:20 09/26/22 07:20
--- NOTE | 2022-09-27 10:21 | P.DS ---
Providers Date of admission: 09/25/22 10:18 Expected date of discharge: 09/27/22 Attending physician: Claribel Collazo MD Consults: 09/25/22 10:19 Consult Physician Routine Consulting Provider: Rosalinda Padron Consult Reason/Comments: TIA Do you want consulting provider notified?: Yes 09/26/22 09:12 Consult Physician Routine Consulting Provider: Deshaun Fontana Consult Reason/Comments: AZRA Do you want consulting provider notified?: Yes Primary care physician: [place] Hospital Course: Discharge Diagnosis: Acute ischemic CVA, concerns for cardioembolic CVA secondary to MRI reports of 3 acute foci of punctate cortical/subcortical infarcts to right parietal cortex. An echocardiogram was completed ruling out PFO showing normal preserved EF with no structural or valvular abnormalities reported. Bilateral large stomach Dopplers negative. CTA neck negative for carotid stenosis.. Loop recorder placed to monitor closely for underlying undiagnosed atrial fibrillation as ischemic stroke believed to be secondary to cardioembolic source. Patient discharged home on aspirin, Plavix, Zetia and atorvastatin. Left-sided weakness/numbness secondary to acute ischemic stroke, deficits resolved History of CAD with previous stenting 2, continue daily cardiac medication regimen with aspirin, Zetia, atorvastatin, and metoprolol. Hypertension, continue daily medication regimen with metoprolol. Hyperlipidemia, continue daily medication regimen with atorvastatin 80 mg daily and patient also started on Zetia 10 mg daily Depression and anxiety, continue daily medication regimen with Lexapro and when necessary Xanax Newly diagnosed diabetes mellitus type 2, Elevated hemoglobin A1c of 6.4% patient discharged home with glucometer and started on Glucophage 500 mg twice a day. Hospital Course: Patient is a very pleasant 39-year-old female with a past medical history CAD status post stenting 2, hypertension, hyperlipidemia, nicotine dependence, and depression. She presented to the emergency department with a chief complaint of left-sided weakness and numbness. Patient reports sudden onset left upper and lower extremity weakness/numbness accompanied by mild slurring of speech, dat nce difficulties, and discoordination. Patient reports slurred speech resolved without intervention within 30 minutes and reports left upper and lower extremity weakness/numbness and discoordination lasted approximately 2-3 hours prior to resolving spontaneously without intervention. Patient underwent full evaluation in the emergency department. EKG was completed showing sinus bradycardia at 52 bpm with T-wave inversion in inferior leads [address] brain completed in radiology report reviewed stating no acute intercranial process and a stable left frontal lobe injury when compared to previous CT completed on 01/08/15. CTA head showing no evidence of intracranial stenosis or aneurysm. CTA neck negative for dissection of the cervical internal carotid arteries and vertebral arteries or any evidence of significant stenosis at the carotid bifurcations. Labs were completed and reviewed. CBC was unremarkable. Coagulation profile showing no significant abnormalities, d-dimer negative at 0.34. BMP unremarkable with blood glucose of 114 upon arrival. Liver profile unremarkable. Troponin negative at less than 0.012. TSH 0.795. Hemoglobin A1c was elevated at 6.4%. Echocardiogram completed showing normal EF of 55-60% with no reported structural or valvular abnormalities. Bilateral lower extremity venous Dopplers completed negative for DVT. AZRA was completed showing no signs of PFO. Cardiology took patient to the EP lab and a loop monitor was implanted. Patient continued to have full resolution of previous reported symptoms of left-sided weakness and difficulties with speech. Discussed with information technology intern and neurologist and patient being discharged home on dual antiplatelet therapy with aspirin and Plavix in which she will continue for 21 days and at that time patient was instructed she can discontinue aspirin and will remain on Plavix indefinitely until further directed by her neurologist/information technology intern. Patient will need to follow up outpatient with PCP in 1-2 days, cardiology in 1 week and for close following of loop recorder results as if atrial fibrillation is identified patient will need to be placed on anticoagulant, neurologist, and director of retail merchandising for coagulopathy workup. Patient is medically stable for discharge home at this time. In addition to continuation of cardiac medication regimen with metoprolol, atorvastatin, and aspirin patient has been started on Plavix, Zetia, and Glucophage. Physical exam: Vital signs reviewed and stable. General: Nontoxic, no distress and appears stated age. Derm: Skin warm and dry, normal coloration for ethnicity. Head: Atraumatic, normocephalic and symmetric. Eyes: EOMs intact, no lid lag, and anicteric sclera Mouth: no lip lesions, mucus membranes moist Cardiovascular: regular rate and rhythm with normal S1S2, no murmur, positive posterior tibial pulses bilaterally, and cap refill < 2 seconds. Lungs: Respirations even, regular, and unlabored on room air. Lungs CTA bilaterally, no rhonchi, no rales, no wheezing, and no accessory muscle usage. Abdominal: soft, nontender to palpation, no guarding, no appreciable organomegaly Ext: ROM is intact and symmetrical with equal and strong strength. No gross muscle atrophy, no edema, no contractures Neuro: Speech clear, face symmetrical and CN II-XII grossly intact with no noted focal neuro deficits. GCS 15. Psych: Alert and oriented to person, place, time, and situation. Appropriate and pleasant affect. A total of 37 minutes of time were spent preparing this complex discharge summary. Pt was discharged on 09/27/22 at 9:59 AM. Patient was seen independently by Nurse Practitioner. This document was prepared using [employer] dictation software. Please allow for errors in supervisor advice while rare they do occur. Rickey Mendenhall NP rendered care for this patient independently, reviewed the findings and plan as documented in the note above. I did not physically speak with or examine the patient on this date. Patient Condition at Discharge: Stable Plan - Discharge Summary New Discharge Prescriptions: New Clopidogrel [Plavix] 75 mg PO DAILY 90 Days #90 tab metFORMIN HCL [Glucophage] 500 mg PO BID 30 Days #60 tab Aspirin 81 mg PO DAILY 21 Days #21 tab Ezetimibe [Zetia] 10 mg PO DAILY 30 Days #30 tab Continue Metoprolol Tartrate [Lopressor] 25 mg PO BID #60 tab Omeprazole [PriLOSEC] 40 mg PO BID Furosemide [Lasix] 20 mg PO HS Losartan Potassium [Cozaar] 25 mg PO HS Atorvastatin [Lipitor] 80 mg PO DAILY Ergocalciferol [Vitamin D2 (1250 Mcg = 22109 Iu)] 1,250 mcg PO SA Potassium Chloride [Klor-Con 20] 20 meq PO DAILY ALPRAZolam [Xanax] 0.25 mg PO BID PRN PRN Reason: Anxiety Escitalopram [Lexapro] 10 mg PO DAILY Discontinued Aspirin EC [Ecotrin] 325 mg PO HS Discharge Medication List Metoprolol Tartrate [Lopressor] 25 mg PO BID #60 tab 09/29/14 [Rx] Omeprazole [PriLOSEC] 40 mg PO BID 01/08/15 [History] Atorvastatin [Lipitor] 80 mg PO DAILY 06/10/21 [History] Furosemide [Lasix] 20 mg PO HS 06/10/21 [History] Losartan Potassium [Cozaar] 25 mg PO HS 06/10/21 [History] Potassium Chloride [Klor-Con 20] 20 meq PO DAILY 06/10/21 [History] ALPRAZolam [Xanax] 0.25 mg PO BID PRN 09/25/22 [History] Ergocalciferol [Vitamin D2 (1250 Mcg = 70398 Iu)] 1,250 mcg PO SA 09/25/22 [History] Escitalopram [Lexapro] 10 mg PO DAILY 09/25/22 [History] Aspirin 81 mg PO DAILY 21 Days #21 tab 09/27/22 [Rx] Clopidogrel [Plavix] 75 mg PO DAILY 90 Days #90 tab 09/27/22 [Rx] Ezetimibe [Zetia] 10 mg PO DAILY 30 Days #30 tab 09/27/22 [Rx] metFORMIN HCL [Glucophage] 500 mg PO BID 30 Days #60 tab 09/27/22 [Rx] Follow up Appointment(s)/Referral(s): Abhilash Springer MD [STAFF PHYSICIAN] - 10/06/22 2:30 pm Guero Lind MD [STAFF PHYSICIAN] - 1 Week (Will need appointment scheduled for CVA at young age, need coagulation workup completed. ) Barbara Conti MD [REFERRING] - 1 Week (office will call with an appt) Jerrell Brown DO [Primary Care Provider] - 1-2 days Patient Instructions/Handouts: Type 2 Diabetes in Adults: New Diagnosis (DC), Ischemic Stroke (DC) Activity/Diet/Wound Care/Special Instructions: Activity: As tolerated. Take breaks as needed. Diet: Heart healthy and carb consistent diet. Avoid salts, or foods with hidden salts such as canned or boxed foods and frozen dinners. Extra salt makes your heart work harder and traps the fluid in your body for longer. Special Instructions: Take all of your medications as directed and remember to keep all of your doctor's appointments and follow-up as needed. You will need to continue with dual antiplatelet therapy with aspirin and Plavix for 21 days, and your neurologist is recommending once completion of the 21 days you may discontinue aspirin but will need to remain on Plavix indefinitely until further directed by your neurologist. You are being discharged home with a glucometer secondary to newly diagnosed diabetes mellitus type II with hemoglobin A1c of 6.4%. It is very important to maintain tight glycemic control of your blood glucose levels especially with your cardiac history and newly diagnosed ischemic stroke. As we discussed, it is important for you to monitor your blood glucose levels daily and document these findings and a daily log/journal to bring with you to your next doctor's appointment. Recommend smoking cessation. You are being discharged home with a loop recorder to monitor closely for atrial fibrillation. If atrial fibrillation is identified via loop recorder he will need to be placed on anticoagulation. It is very important to follow up outpatient with her PCP, information technology intern, neurologist, and director of retail merchandising for evaluation. Thank you for allowing us to participate in your care, it was truly a pleasure having you for our patient!!! Discharge Disposition: HOME SELF-CARE
--- NOTE | 2022-09-27 10:44 | CA ---
Transthoracic Echo Report Name: Hallie Potts Age: 47 Gender: F : 1975 Exam Date: 09/26/2022 12:19 Exam Location: [facility] Ht (in): 61 Wt (lb): 205 Ordering Physician: Marybel Christina MD Attending/Referring Phys: Grocery Checker Evelia Tinoco RDCS Procedure CPT: Indications: tia Cardiac Hx: Technical Quality: Fair Contrast 1: Total Dose (mL): Contrast 2: Total Dose (mL): MEASUREMENTS (Male / Female) Normal Values 2D ECHO LV Diastolic Diameter PLAX 4.1 cm 4.2 - 5.9 / 3.9 - 5.3 cm LV Systolic Diameter PLAX 3.0 cm IVS Diastolic Thickness 1.3 cm 0.6 - 1.0 / 0.6 - 0.9 cm LVPW Diastolic Thickness 1.2 cm 0.6 - 1.0 / 0.6 - 0.9 cm LV Relative Wall Thickness 0.6 RV Internal Dim ED PLAX 3.0 cm LA Systolic Diameter LX 3.3 cm 3.0 - 4.0 / 2.7 - 3.8 cm LV Diastolic Volume MOD 4C 60.0 cm??? LV Systolic Volume MOD 4C 30.4 cm??? LV Ejection Fraction MOD 4C 49.4 % LV Diastolic Length 4C 7.4 cm LV Systolic Length 4C 6.6 cm LV Diastolic Volume MOD 2C 70.6 cm??? LV Systolic Volume MOD 2C 19.5 cm??? LV Ejection Fraction MOD 2C 72.4 % LV Diastolic Length 2C 7.6 cm LV Systolic Length 2C 6.9 cm LA Volume 47.0 cm??? 18 - 58 / 22 - 52 cm??? M-MODE Aortic Root Diameter MM 3.1 cm MV E Point Septal Separation 0.8 cm AV Cusp Separation MM 1.9 cm DOPPLER AV Peak Velocity 137.9 cm/s AV Peak Gradient 7.6 mmHg MV Area PHT 3.9 cm??? Mitral E Point Velocity 111.1 cm/s Mitral A Point Velocity 33.5 cm/s Mitral E to A Ratio 3.3 MV Deceleration Time 196.9 ms MV E' Velocity 10.8 cm/s Mitral E to MV E' Ratio 10.3 FINDINGS Left Ventricle Left ventricular ejection fraction is estimated at 55-60 %. Left ventricular cavity size normal. Moderately increased septal wall thickness. Mildly increased posterior wall thickness. Right Ventricle Normal right ventricular size and function. Unable to estimate the right ventricular systolic pressure. Right Atrium Normal right atrial size. Left Atrium Normal left atrial size. Mitral Valve Mitral valve thickened. Trace mitral regurgitation. Aortic Valve Trileaflet aortic valve. No aortic valve stenosis or regurgitation. Tricuspid Valve Structurally normal tricuspid valve. No tricuspid regurgitation. Pulmonic Valve Structurally normal pulmonic valve. No pulmonic regurgitation. Pericardium Normal pericardium. No pericardial effusion. Aorta Normal size aortic root and proximal ascending aorta. CONCLUSIONS Left ventricular ejection fraction 55-60% Moderately increased left ventricular wall thickness Trace mitral regurgitation No pericardial effusion Previewed by: Dr. Jay Macias DO (Electronically Signed) Final Date: 27 Sep 2022 10:43
--- NOTE | 2022-09-27 12:30 | P.PN ---
Subjective Progress Note Date: 09/27/22 I'm seeing the patient for the first time during this admission. Please refer to Dr. Padron's note for further details. It seems the patient had the right parietal stroke on the recent MRI and there is small focal regions about 3 of him over that region. Patient feels she is back to baseline. Denies any focal weakness, numbness, visual disturbance or difficulty swallowing or getting her words out. She stated that she had the history of 2 myocardial infarction her first one was at the age of 47 which was at the year 2015 and the next one was 2018. She had the stents in 2014 and 18. She has history of prediabetes. She smokes about a pack a day for years. She denies any blood clots history in the family. She stated that she has F as significant cardiac issues in the family. Objective - Vital Signs Vital signs: Vital Signs Temp 98.0 F 09/27/22 04:00 Pulse 51 L 09/27/22 08:00 Resp 16 09/27/22 08:00 BP 134/63 09/27/22 08:00 Pulse Ox 93 L 09/27/22 08:00 FiO2 Intake & Output 09/26/22 09/27/22 09/27/22 18:59 06:59 18:59 Intake Total 250 540 Output Total 0 0 Balance 250 0 540 Intake: IV 250 Oral 540 Output: Urine 0 Stool 0 0 Emesis 0 Other: Voiding Method Toilet Toilet Toilet # Voids 2 1 # Bowel Movements 0 - Exam GENERAL: The patient is lying in bed and is not in acute distress. NEUROLOGICAL: Higher mental function: The patient is awake, alert, oriented to self, place and time. Patient is following commands. No aphasia and no neglect. Cranial nerves: The pupils are round, equal and reactive to light and accommodation. Visual tee are full to confrontation throughout. Extraocular movement is intact no nystagmus is noted. Facial sensation is normal to touch throughout. The facial strength is normal throughout. Tongue is midline and moved [id number] without any difficulty. No dysarthria is noted. Shoulder shrug is normal bilaterally. Motor: The strength is 5 over 5 throughout. Normal tone and bulk. Cerebellum: Normal finger to nose bilaterally. Sensation: Sensation is normal to touch throughout. SOME OF THE WORK-UP DURING THIS HOSPITAL VISIT CONSISTED OF: Lipid panel: Triglyceride 148, cholesterol 151, LDL is 80 and HDL is 40. TSH is 0.795. Hemoglobin A1c 6.4. MR the brain is reported as approximately 3 acute foci of punctate cortical/waters bcortical infarct right parietal cortex. Greater than 6 hours in duration. Right T2 FLAIR signal. No midline shift, mass effect, hydrocephalus or herniation. Background trace burden of chronic small vessel ischemic disease. CT angiography of the head and neck was reported as no evidence of dissection of cervical internal carotid arteries or vertebral arteries or any evidence of significant stenosis at the carotid bifurcation. No evidence of intracranial high-grade stenosis or intracranial aneurysm. As esophageal echocardiogram was reported as no evidence of cardiac source of embolization. Intact intra-arterial septum. Intact left atrial appendage. Normal biventricular dye mentioned and systolic function. - Labs CBC & Chem 7: 09/26/22 07:20 09/26/22 07:20 Assessment and Plan Assessment: Acute ischemic stroke (3 small foci over the right parietal region). Etiology of stroke seems embolic in nature I feel it's more cardioembolic History of 2 MIs 1 and 2014 and the other 2017 and had stents Pre-diabetes mellitus Tobacco use Significant family history of cardiovascular disease Plan: Continue aspirin 81 mg daily (the patient was on aspirin at home). During this hospital visit she was also started on Plavix 75 mg daily. The patient to be on dual antiplatelets for 21 days and after 21 days from a neurologic perspective, stop Aspirin but continue Plavix indefinitely. Continue home dose of Lipitor 80 mg daily at bedtime. Patient had a loop recorder and she is to follow up with cardiology as an outpatient. Recommend a young stroke workup as an outpatient and she is to follow up with hematology and she is in agreement PT, OT and also PL consulted Continue neuro checks Continue cardiac monitoring She was counseled on tobacco cessation For DVT prophylaxis the patient is on Enoxaparin. Upon discharge recommended the patient follow up with a neurologist within 1-2 weeks The plan was discussed with the patient and primary team There is no further neurological workup. Time with Patient: Less than 30
== END 2022-09-27 12:27 | disposition home or self-care (01) | DRG 65 ==
LOC: EC 08:11 → 3SCARD 10:18
PROVIDERS: ADMIT Internal Medicine; ATTEND Internal Medicine
PROC: B24BZZ4 Ultrasonography of Heart with Aorta, Transesophageal (ICD-10-PCS; principal; 2022-09-26 11:00)
DX: I63.331 Cerebral infarction due to thrombosis of right posterior cerebral artery (principal); G81.94 Hemiplegia, unspecified affecting left nondominant side; I11.0 Hypertensive heart disease with heart failure; I50.9 Heart failure, unspecified; F32.A Depression, unspecified; E66.9 Obesity, unspecified; E78.5 Hyperlipidemia, unspecified; F17.210 Nicotine dependence, cigarettes, uncomplicated; I25.10 Atherosclerotic heart disease of native coronary artery without angina pectoris; R20.0 Anesthesia of skin; R47.81 Slurred speech; R73.03 Prediabetes; K21.9 Gastro-esophageal reflux disease without esophagitis; F41.9 Anxiety disorder, unspecified; R00.1 Bradycardia, unspecified; R29.700 NIHSS score 0; Z68.38 Body mass index [BMI] 38.0-38.9, adult; Z95.5 Presence of coronary angioplasty implant and graft; I25.2 Old myocardial infarction; Z79.82 Long term (current) use of aspirin; Z86.16 Personal history of COVID-19; Z79.899 Other long term (current) drug therapy; Z82.49 Family history of ischemic heart disease and other diseases of the circulatory system; Z28.311 Partially vaccinated for COVID-19
CPT/HCPCS: 33285; 36415; 70450; 70496; 70498; 70551; 71046; 80048; 80053; 80061; 82550; 83036; 83735; 84443; 84484; 85025; 85379; 85610; 85730; 93005; 93306; 93312; 93320; 93325; 93970; 96360; 99285

== ENCOUNTER → 2022-12-06 | Outpatient (CLI) | payer OTHER ==
--- NOTE | 2022-12-06 11:53 | XR ---
EXAMINATION TYPE: XR chest 2V DATE OF EXAM: 12/06/2022 COMPARISON: 09/25/2022 INDICATION: History of smoking TECHNIQUE: Frontal and lateral views of the chest are obtained. FINDINGS: The heart size is normal. The pulmonary vasculature is normal. The lungs are clear. Loop recorder over chest. IMPRESSION: 1. No acute pulmonary process. 2. Consider evaluation with low-dose CT chest screening for lung cancer.
== END | disposition home or self-care (01) ==
LOC: RADXRYALE 10:32
PROVIDERS: ATTEND Physician Assistant Medical
DX: R06.02 Shortness of breath (principal); R05.9 Cough, unspecified; Z87.891 Personal history of nicotine dependence
CPT/HCPCS: 71046

== ENCOUNTER → 2022-12-07 | Outpatient (CLI) | payer OTHER ==
[2022-12-07 20:22] LABS: BUN/Creat Ratio 12.57 Ratio (12.00-20.00); Blood Urea Nitrogen 8.8 mg/dL (9.0-27.0); Calcium 9.3 mg/dL (8.7-10.3); Chloride 105 mmol/L (96-109); Glucose 168 mg/dL (70-110); Potassium 4.7 mmol/L (3.5-5.5); Sodium 140 mmol/L (135-145)
[2022-12-07 20:35] LABS: HCT 36.6 % (37.2-46.3); HGB 11.5 d/dL (12.0-15.0); MCH 26.4 pg (27.0-32.0); MCHC 31.4 d/dL (32.0-37.0); MCV 83.9 FL (80.0-97.0); Mean Platelet Volume 11.4 FL (9.5-12.2); NRBC Per 100 WBC 0 X 10*3/uL (0.00-0.01); Platelet Count 309 X 10*3/uL (140-440); RBC 4.36 X 10*6/uL (4.10-5.20); RDW 19.1 % (11.5-14.5); WBC 10.93 X 10*3/uL (4.50-10.00)
== END | disposition home or self-care (01) ==
LOC: LABWHC1 15:46
PROVIDERS: ATTEND Internal Medicine Cardiovascular Disease
DX: R00.1 Bradycardia, unspecified (principal)
CPT/HCPCS: 36415; 80048; 84443; 85027

== ENCOUNTER 2023-05-30 08:30 | Day surgery (SDC) | payer BC, OTHER ==
[~2023-05-30 08:30] MED LIST: ceFAZolin 1 GM in SODIUM CHLORIDE 0.9% IRRIG BTL 250 ML IRRIGATION PRN
[2023-05-30] MEDS: SODIUM CHLORIDE 0.9% 1,000 ML IV SCH (08:51)
[2023-05-30 09:07] LABS: Anisocytosis Slight; Basophils % (A) 0 %; Eosinophils # (A) 0.3 k/uL (0-0.7); Eosinophils % (A) 3 %; HCT 37.1 % (34.0-46.0); HGB 11.6 gm/dL (11.4-16.0); Hypochromasia Moderate; Lymphocytes # (A) 2.1 k/uL (1.0-4.8); Lymphocytes % (A) 23 %; MCHC 31.4 g/dL (31.0-37.0); MCV 82.9 fL (80.0-100.0); Mean Platelet Volume 8.7; Microcytosis Slight; Monocytes # (A) 0.4 k/uL (0-1.0); Monocytes % (A) 5 %; Neutrophils # (A) 6.1 k/uL (1.3-7.7); Neutrophils % (A) 67 %; Platelet Count 328 k/uL (150-450); RBC 4.48 m/uL (3.80-5.40); RDW 18.4 % (11.5-15.5)
[2023-05-30 09:20] LABS: African American GFR (CKD) >90 (>60 ml/min/1.73 sqM); Anion Gap 9 mmol/L; Blood Urea Nitrogen 12 mg/dL (7-17); Calcium 9.5 mg/dL (8.4-10.2); Carbon Dioxide 26 mmol/L (22-30); Chloride 105 mmol/L (98-107); Glucose 123 mg/dL (74-99); Non-African American GFR(CKD) >90 (>60 ml/min/1.73 sqM); Potassium 4.3 mmol/L (3.5-5.1); Sodium 140 mmol/L (137-145)
[2023-05-30] MEDS ORDERED: IOPAMIDOL-370 100ML BTL INJ ONE (09:46)
[2023-05-30] MEDS: MIDAZOLAM 2 MG/2 ML VIAL IVP ONE ×2 (10:04→10:30)
[2023-05-30] MEDS ORDERED: LIDOCAINE 1% INJ 10MG/ML (20 ML MDV) SQ ONE ×2 (10:04→10:22)
[2023-05-30] MEDS ORDERED: fentaNYL (PF) 50 MCG/ML 2 ML AMP IVP ONE (10:04)
[2023-05-30] MEDS ORDERED: ACETAMINOPHEN TAB 325 MG TAB PO PRN (11:39)
[2023-05-30] MEDS ORDERED: ACETAMINOPHEN TAB 500 MG TAB PO PRN (11:41)
[2023-05-30] MEDS ORDERED: ALPRAZolam 0.25 MG TAB PO PRN (11:41)
--- NOTE | 2023-05-30 12:00 | P.PCN ---
Date of Procedure: 05/30/23 Preoperative Diagnosis: Symptomatic bradycardia with 5.0-6.0 second pauses Postoperative diagnosis: Symptomatic bradycardia with 5.0-6.0 second pauses Procedure: Dual chamber permanent pacemaker placement Performed by: Dr. Tellez Moderate conscious sedation time was 89 minutes. Patient was administered Versed and fentanyl. Oxygen saturation hemodynamic and EKG were monitored closely Clinical information: Description of Procedure: Procedure(s): Dual Chamber Permanent Pacemaker Implantation; Cardiac Fluoroscopy Indications: Sick sinus syndrome with symptomatic pauses of more than 5.0 seconds. Preprocedure Diagnosis: [Symptomatic bradycardia with more than 5.0 second pauses] Postprocedure Diagnosis: [Symptomatic bradycardia with more than 5.0 second pauses] Moderate conscious sedation time was 89 minutes. Patient was administered Versed. She also received fentanyl. Oxygen saturation hematemesis and EKG were monitored closely Clinical information: This is a 48-year-old lady with a history of CAD prior inferior ST elevation TN and stenting of RCA in 2014. She has hypertension hyperlipidemia type 2 diabetes and obesity. In September of this year she had a TIA/CVA with good recovery loop recorder was placed. She has been having episodes of dizziness and leg numbness and on the loop recorder there were documented pauses of more than 5.0 seconds of about 12:30 in the of normal correlates with her symptoms of dizziness and lightheadedness. She was advised permanent pacemaker after evaluation by her primary supply chain procurement manager. I saw the patient on May 25 explained to her the rationale risks benefits and options. She understood or details and wish to proceed with the dual-chamber permanent pacemaker Procedure Details: The risks, benefits, complications, treatment options, and expected outcomes were discussed with the patient. The patient and/or family concurred with the proposed plan, giving informed consent. Patient was prepped and draped in the usual strict sterile fashion. After the antibiotic was completely infused, 20 mL of 1% lidocaine was infiltrated into the area just medial to the left deltopectoral groove. Using a micropuncture needle technique with fluoroscopic guidance two access points were obtained into the axillary vein. 2 wires were advanced under to access fluoroscopic guidance into the right atrium. Using a #15 scalpel, an incision was made. The incision was extended to the pre-pectoral fascia using blunt dissection. Using cautery and dissection a pocket was made. A guidewire was advanced to the heart underfluoroscopic guidance. Sheath was advanced over the guidewire. A guidewire was retained, and dilator was removed. A pacemaker lead was advanced to the heart underfluoroscopic guidance. The sheath was peeled away. The lead was fixated to the right ventricular apex. Appropriate sensing and thresholds were obtained. No diaphragmatic pacing occurred at 10 V and 1.5 ms. As second sheath was advanced over the guidewire. The dilator and guidewire were removed. A pacemaker lead was advanced to the he art underfluoroscopic guidance. The sheath was peeled away. The lead was fixated to the right atrial appendage. Appropriate sensing and thresholds were obtained. No diaphragmatic pacing occurred at 10 V and 1.5 ms. Both were active leads and both the leads were screwed and and secured to the underlying muscle using 2 separate 0 silk sutures. The leads were then sutured to the pectoralis muscle using silk. Hemostasis was achieved. The measurements were then rechecked. A left pre-pectoral pocket was fashioned.The pocket was irrigated with antibiotic and I left an antibiotic sponge in the pocket for [20] minutes. The leads were attached to the generator. The system was placed in the pocket. The pacemaker and lead system were visualized under fluoroscopy. Appropriate redundancy/slacken the leads were noted. The pins of the leads were beyond the set screws. The pulse generator was also secured to the underlying muscle using a 0 silk suture. Hemostasis was reverified. The pocket was then closed with 2.0 and 3.0 Vicryl. Steri-Strips, a gauze dressing, and operative site were placed. PacemakManufacturer: Medtronic BOBBY XT DR MRI shows scan W1 DR 01. Serial number [id number]. Atrial lead room server Medtronic model 5076-45 serial number [id number] Ventricular lead room server Med[employer]onic model 5076-52 serial number [id number]. The atrial threshold was 0.75 V at 0.4 ms. The impedance was 950 ohms. P waves were 1.3 mV. The ventricular lead threshold was 0.75 V at 0.4 ms. R waves of more than 20 mV. Impedance was 817 ohms. The pacemaker was set at a lower rate of 50 high rate of 110 BPM the remote was DDDR Estimated Blood Loss: Less than 50 ml. Complications: None; patient tolerated the procedure well. There were no complications. Disposition: PACU - hemodynamically stable. Condition: Stable. No complications. Patient will be discharged in 24 hours after device check and chest x-ray. Details were discussed with patient as well as her mother who was in the waiting room.
--- NOTE | 2023-05-30 12:24 | XR ---
EXAMINATION TYPE: XR chest 1V portable DATE OF EXAM: 05/30/2023 Comparison: 12/06/2022 Clinical History: 48-year-old female Lead placement check Findings: Left anterior chest wall pacemaker generator with right atrial and right ventricular leads. Slight ki nking of one of the leads along the inferior margin of the clavicle. No appreciable pneumothorax. Device along the left heart margin. Heart mildly enlarged. Hazy densities relating to large patient b alva habitus. No consolidation or pleural effusion. Impression: 1. Placement of left anterior chest wall pacemaker generator. Right atrial and right ventricular lead s. Note slight kinking of one of the leads along the inferior margin of the clavicle. Questionable cl inical significance at this time. 2. Mild cardiomegaly. Otherwise, no acute process seen..
[2023-05-30] MEDS ORDERED: HYDROmorphone 0.5 MG/0.5 ML SYRINGE IVP STA ×2 (12:31→19:21)
[2023-05-30] MEDS ORDERED: ONDANSETRON 4 MG/2 ML VIAL ONE (12:35)
[2023-05-30] MEDS: FAMOTIDINE 20 MG TAB PO SCH (20:37)
[2023-05-30] MEDS ORDERED: LOSARTAN 25 MG TAB PO SCH (21:00)
[2023-05-30] MEDS ORDERED: GABAPENTIN 100 MG CAP PO SCH (21:00)
[2023-05-31] MEDS: SODIUM CHLORIDE 0.9% 1,000 ML IV SCH (01:42)
[2023-05-31 03:20] VITALS: RESP 16
[2023-05-31 08:42] VITALS: BP 119/62; PULSE 62; TEMP 98
--- NOTE | 2023-05-31 08:45 | XR ---
EXAMINATION TYPE: XR chest 2V DATE OF EXAM: 05/31/2023 COMPARISON: 05/30/2023 HISTORY: 48 year-old female check lead placement, assess for pneumothorax TECHNIQUE: Frontal and lateral views FINDINGS: Loop recorder device on the left side of the heart. Left anterior chest wall pacemaker generator with right atrial and ventricular leads. No appreciable pneumothorax. Slight kinking of 1 of the leads al tiago the inferior margin of the distal clavicle similar to yesterday's exam. Heart mildly enlarged. No consolidation or pleural effusion. IMPRESSION: Stable exam from yesterday, two lead pacemaker generator as above. No appreciable pneumothorax.
[2023-05-31] MEDS ORDERED: POTASSIUM CHLORIDE ER 20 MEQ TAB.ER PO SCH (09:00)
[2023-05-31] MEDS ORDERED: ESCITALOPRAM 10 MG TAB PO SCH (09:00)
[2023-05-31] MEDS ORDERED: EZETIMIBE 10 MG TAB PO SCH (09:00)
[2023-05-31] MEDS ORDERED: ATORVASTATIN 80 MG TAB PO SCH (09:00)
[2023-05-31] MEDS ORDERED: ASPIRIN 81 MG PO SCH (09:00)
[2023-05-31] MEDS ORDERED: FUROSEMIDE 20 MG TAB PO SCH (09:00)
[2023-05-31] MEDS ORDERED: CLOPIDOGREL 75 MG TAB PO SCH (09:00)
[2023-05-31] MEDS ORDERED: GABAPENTIN 100 MG CAP PO SCH (09:00)
[2023-05-31] MEDS: FAMOTIDINE 20 MG TAB PO SCH (09:20)
--- NOTE | 2023-05-31 12:20 | P.DS ---
Providers Expected date of discharge: 05/31/23 Attending physician: Jessika Bravo [facility] Course: This is a 48-year-old female patient of Dr. Giron with past medical history of coronary artery disease with prior acute inferior ST elevated [place] in 2014 with stenting of the distal RCA, hypertension, hyperlipidemia, diabetes mellitus type 2, obesity, TIA with full recovery. Patient had a loop recorder noted to have episodes of bradycardia and found to have pauses 5-6 second pauses that correlated with her symptoms of dizziness and near syncope. Patient was brought into the hospital and is status post permanent pacemaker implantation, dual- chamber, [employer]. Chest x-ray shows slight kink and lead but acceptable. Pacemaker has been checked by lens and frames prescription clerk without any problems. Patient is cleared for discharge from cardiology and will follow-up in the office in one week. No change in her home medication list. Patient Condition at Discharge: Stable Plan - Discharge Summary Discharge Rx Participant: No New Discharge Prescriptions: Continue Furosemide [Lasix] 20 mg PO HS Losartan Potassium [Cozaar] 25 mg PO HS Atorvastatin [Lipitor] 80 mg PO DAILY Ergocalciferol [Vitamin D2 (1250 Mcg = 42462 Iu)] 1,250 mcg PO SA Clopidogrel [Plavix] 75 mg PO DAILY 90 Days #90 tab metFORMIN HCL [Glucophage] 500 mg PO BID 30 Days #60 tab Gabapentin [Neurontin] 100 mg PO DAILY Gabapentin [Neurontin] 200 mg PO HS Acetaminophen [Tylenol Extra Strength] 1 gm PO Q4-6H PRN PRN Reason: Pain Potassium Chloride [Klor-Con 20] 20 meq PO DAILY ALPRAZolam [Xanax] 0.25 mg PO BID PRN PRN Reason: Anxiety Escitalopram [Lexapro] 10 mg PO DAILY Aspirin 81 mg PO DAILY 21 Days #21 tab Ezetimibe [Zetia] 10 mg PO DAILY 30 Days #30 tab Famotidine [Pepcid] 20 mg PO BID Discharge Medication List Atorvastatin [Lipitor] 80 mg PO DAILY 06/10/21 [History] Furosemide [Lasix] 20 mg PO HS 06/10/21 [History] Losartan Potassium [Cozaar] 25 mg PO HS 06/10/21 [History] Potassium Chloride [Klor-Con 20] 20 meq PO DAILY 06/10/21 [History] ALPRAZolam [Xanax] 0.25 mg PO BID PRN 09/25/22 [History] Ergocalciferol [Vitamin D2 (1250 Mcg = 74912 Iu)] 1,250 mcg PO SA 09/25/22 [History] Escitalopram [Lexapro] 10 mg PO DAILY 09/25/22 [History] Aspirin 81 mg PO DAILY 21 Days #21 tab 09/27/22 [Rx] Clopidogrel [Plavix] 75 mg PO DAILY 90 Days #90 tab 09/27/22 [Rx] Ezetimibe [Zetia] 10 mg PO DAILY 30 Days #30 tab 09/27/22 [Rx] metFORMIN HCL [Glucophage] 500 mg PO BID 30 Days #60 tab 09/27/22 [Rx] Famotidine [Pepcid] 20 mg PO BID 05/29/23 [History] Gabapentin [Neurontin] 100 mg PO DAILY 05/29/23 [History] Gabapentin [Neurontin] 200 mg PO HS 05/29/23 [History] Acetaminophen [Tylenol Extra Strength] 1 gm PO Q4-6H PRN 05/30/23 [History] Follow up Appointment(s)/Referral(s): Mike Giron MD [STAFF PHYSICIAN] - 06/07/23 9:00 am (DEVICE CLINIC APPOINTM ENT AND ALSO WILL SEE DR GIRON ON May AT 9:AM) Patient Instructions/Handouts: Moderate Sedation (DC), Pacemaker (DC)
[2023-06-01] MEDS ORDERED: metFORMIN 500 MG TAB PO SCH (07:30)
[2023-06-03] MEDS ORDERED: ERGOCALCIFEROL 1,250 MCG (50,000 IU) CAPSULE PO SCH (09:00)
== END 2023-05-31 13:08 | disposition home or self-care (01) ==
LOC: CATHEP 08:30 → 6NMEDSUR 11:29 → CATHEP 05-31 13:08
PROVIDERS: ATTEND Internal Medicine Interventional Cardiology
DX: I49.5 Sick sinus syndrome (principal); K92.0 Hematemesis; I25.10 Atherosclerotic heart disease of native coronary artery without angina pectoris; Z95.5 Presence of coronary angioplasty implant and graft; I25.2 Old myocardial infarction; I11.9 Hypertensive heart disease without heart failure; E11.9 Type 2 diabetes mellitus without complications; E66.9 Obesity, unspecified; E78.5 Hyperlipidemia, unspecified; F17.210 Nicotine dependence, cigarettes, uncomplicated; Z79.1 Long term (current) use of non-steroidal anti-inflammatories (NSAID); Z86.73 Personal history of transient ischemic attack (TIA), and cerebral infarction without residual deficits; Z79.82 Long term (current) use of aspirin; Z79.84 Long term (current) use of oral hypoglycemic drugs; Z79.02 Long term (current) use of antithrombotics/antiplatelets; Z79.899 Other long term (current) drug therapy
CPT/HCPCS: 33208; 80048; 85025; 81025; 71045; 71046; C1892; C1898; C1769; C1785; J2250; J0690 ×2; J2405; J2001; J3010; J1170; Q9967